=== PATIENT | male | born 1955 | race Caucasian/White ===

== ENCOUNTER 2017-10-12 10:45 | Outpatient (CLI) | payer MEDICARE, MEDICAID ==
[~2017-10-12 10:45] MED LIST: AC325T PO; ACYSUS PO; ALBU0.63 IH; ALBU2.5V4 IH; ALBU2.5V4 NEB; ALPR0.5T7 PO; ALPR1T PO; ALPR2TAB6 PO; AMOX-355 PO; AMOX500C2 PO; ARIP30TA PO; CPR500T PO; CYCL10TA9 PO; DCS100C PO; DIAZ-345 PO; DIAZ10TA3 PO; DOCU-143 PO; DOXY100C2 PO; DRON5CAP2 PO; DULO60CA58 PO; FENT1PAT11 TD; FENT1PAT60 TD; FENT1PAT9 TD; FLC100T1 PO; FLUO20CA25 PO; FLUT1DIS26 IH; HYDR-2890 PO; HYDR-3720 PO; HYDR-3730 PO; HYDR-3820 PO; HYDR-623 PO; HYDR1TAB PO; HYDR1TAB86 PO; HYDROCODONE; LEVE500T6 PO; LEVO250T7 PO; LEVO500T69 PO; LEVO750T24 PO; MAGIC MOUTH WASH; MAGIC MOUTHWASH PO; MAGN400C PO; MECL-106 PO; MECL25TA56 PO; METR500T PO; MORP100C16 PO; MORP15TA8 PO; MORP30TA16 PO; MORP30TA5 PO; MORPHINE; MSIR PO; MUPI1OIN5 NS; NEBU1EAC10 MC; NEBU1EAC2 MC; NUTR237L33 PO; OMEP20CA12 PO; ONDA-42 SL; ONDA8TAB6 PO; OXYC-12 PO; OXYC-202 PO; OXYC-465 PO; PANT40TA2 PO; PNT40TEC PO; PRCD5U PO; PRD20T PO; PRED20TA PO; PROC10TA PO; PROC5TAB PO; QTP100T PO; QUET100T32 PO; SCR1T1 PO; SENN8.6T81 PO; SNN187T PO; SUCR1TAB PO; TRAZADONE; TRZ50T; ZOLP12.5 PO; ZOLP12.546 PO; [UNRECOGNIZED DRUG - CODE] PO; hydrocodone 10/325 PO
== END 2017-10-12 11:20 | disposition home or self-care (01) ==
LOC: SLEEP 10:45
PROVIDERS: ATTEND Family Medicine
DX: G47.30 Sleep apnea, unspecified (principal); R06.83 Snoring; G47.00 Insomnia, unspecified; G47.10 Hypersomnia, unspecified; I49.9 Cardiac arrhythmia, unspecified

== ENCOUNTER 2017-11-18 16:21 | Inpatient (IN) | payer MEDICARE, MEDICAID ==
[~2017-11-18] VITALS: Ht 172.7 cm; Wt 57.2 kg
--- NOTE | 2017-11-18 16:27 | ED Cough/URI ---
General Stated Complaint: COUGH Source: patient, EMS Exam Limitations: no limitations History of Present Illness Time seen by provider: 16:26 Initial Comments To ER per EMS from home with reports of a cough that has been productive for 7 days. Today he coughed up a bit of blood-tinged sputum. Has a history of throat cancer which has been surgically resected and is most of his feedings through a PEG tube. He also states that he is out of his pain medication and he ran out yesterday. He takes this for chronic neck and back pain. He is noted to be febrile at 101.8 upon arrival. Received 1L normal saline en route to hospital. Timing/Duration: constant, week Severity/Quality: productive cough Associated Symptoms: cough, fever/chills, shortness of breath Allergies and Home Medications Allergies Coded Allergies: propoxyphene (Verified Allergy, Unknown, 02/10/07) Home Medications Albuterol Sulfate 2.5 Mg/3 Ml Vial.neb, 2.5 MG NEB Q4H PRN for SHORTNESS OF BREATH, (Reported) Diazepam 10 Mg Tablet, 10 MG PO QID PRN for ANXIETY, (Reported) Docusate Sodium 100 Mg Capsule, 100 MG PO DAILY PRN for CONSTIPATION-1ST LINE, ( Reported) Duloxetine HCl 60 Mg Capsule.dr, 60 MG PO DAILY, (Reported) Fentanyl 1 Each Patch.td72, 100 MCG TD Q72H, (Reported) USES ALONG WITH 37.5 MCG PATCH Fentanyl 1 Each Patch.td72, 37.5 MCG TD Q72H, (Reported) USES ALONG 100MCG PATCH Nutritional Supplement 237 Ml Liquid, 120 ML PO QID, (Reported) Zolpidem Tartrate 12.5 Mg Tab.mphase, 12.5 MG PO HS PRN for SLEEP, (Reported) Constitutional: see HPI, other (cachectic and pale) EENTM: see HPI Respiratory: see HPI, cough Cardiovascular: no symptoms reported Genitourinary: no symptoms reported Musculoskeletal: no symptoms reported Skin: no symptoms reported Psychiatric/Neurological: No Symptoms Reported Hematologic/Lymphatic: No Symptoms Reported Past Erbvzzd-Gjfwzp-Tmrbdv Hx Patient Social History Type Used: Cigarettes 2nd Hand Smoke Exposure: Yes Recent Hopitalizations: No Immunizations Up To Date Tetanus Booster (TDap): Less than 5yrs PED Vaccines UTD: Yes Date of Pneumonia Vaccine: Nov 23, 2015 Date of Influenza Vaccine: Aug 06, 2017 Seasonal Allergies Seasonal Allergies: No Surgeries History of Surgeries: Yes Surgeries: Abdominal, Gallbladder, Orthopedic, Tonsillectomy Respiratory History of Respiratory Disorde: Yes (ASPIRATION PNEUMONIA) Respiratory Disorders: Pneumonia, Chronic Bronchitis, COPD Currently Using CPAP: No Currently Using BIPAP: No Cardiovascular History of Cardiac Disorders: Yes (PT REPORTS HE NEEDS PACEMAKER.) Neurological History of Neurological Disord: Yes Neurological Disorders: Neuropathy, Seizure Disorder Reproductive System Hx Reproductive Disorders: No Sexually Transmitted Disease: No HIV/AIDS: No Genitourinary History of Genitourinary Disor: No Gastrointestinal History of Gastrointestinal Di: Yes (HEPATITIS C --NO TREATMENT; S/P CHOLECYSTECTOMY) Gastrointestinal Disorders: Hepatitis, Gall Bladder Disease Musculoskeletal History of Musculoskeletal Dis: Yes Musculoskeletal Disorders: Arthritis, Back Injury, Chronic Back Pain Endocrine History of Endocrine Disorders: Yes (DIET CONTROLLED) Endocrine Disorders: Diabetes, Non-Insulin dep HEENT History of HEENT Disorders: Yes (TONSILLAR CANCER) HEENT Disorders: Dysphagia 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 Did You Recieve Any Treatments: Yes Type of Tx Receive: Chemotherapy, Radiation, Surgical Intervention Psychosocial History of Psychiatric Problem: Yes Behavioral Health Disorders: Anxiety, Bipolar, Depression Integumentary History of Skin or Integumenta: No Blood Transfusions History of Blood Disorders: Yes (HEP C) Adverse Reaction to a Blood Tr: No Family Medical History Family Medial History: Cardiovascular disease 19 FATHER 19 MOTHER G8 BROTHER Diabetes mellitus 19 FATHER 19 MOTHER FH: cancer 19 FATHER 19 MOTHER Hypertension 19 FATHER 19 MOTHER Myocardial infarction 19 FATHER (patient stated dad has had 2 heart attacks) G8 BROTHER Respiratory disorder G8 SISTER (COPD) Physical Exam Vital Signs Vital Sign - Last 12Hours 11/18/17 16:21 Temp 101.0 Pulse 86 Resp 18 B/P (MAP) 106/66 (79) Pulse Ox 91 O2 Delivery Nasal Cannula O2 Flow Rate 2.00 Capillary Refill : General Appearance: WD/WN, no apparent distress Eyes: Bilateral Eye Normal Inspection, Bilateral Eye PERRL, Bilateral Eye EOMI HEENT: PERRL/EOMI, normal ENT inspection, TMs normal Neck: non-tender, full range of motion Respiratory: no respiratory distress, no accessory muscle use, decreased breath sounds, rales, rhonchi Cardiovascular: regular rate, rhythm, no murmur Gastrointestinal: normal bowel sounds, non tender, soft Neurologic/Psychiatric: normal mood/affect, oriented x 3, other (lethargic) Skin: normal color, warm/dry Focused Exam Evaluation Lactate Level Laboratory Tests 11/18/17 16:24: Lactic Acid Level 1.37 Lactic Acid Level Laboratory Tests Test 11/18/17 16:24 Lactic Acid Level 1.37 MMOL/L (0.50-2.00) Progress/Results/Core Measures Suspected Sepsis SIRS Temperature: Pulse: Respiratory Rate: Laboratory Tests 11/18/17 16:24: White Blood Count 15.2H Blood Pressure / Mean: Laboratory Tests 11/18/17 16:24: Lactic Acid Level 1.37 Laboratory Tests 11/18/17 16:24: Creatinine 0.67, Platelet Count 204, Total Bilirubin 0.8 Results/Orders Lab Results Laboratory Tests Test 11/18/17 16:24 11/18/17 16:43 11/18/17 17:30 Range/Units White Blood Count 15.2 H 4.3-11.0 10^3/uL Red Blood Count 3.50 L 4.35-5.85 10^6/uL Hemoglobin 11.2 L 13.3-17.7 G/DL Hematocrit 33 L 40-54 % Mean Corpuscular Volume 94 80-99 FL Mean Corpuscular Hemoglobin 32 25-34 PG Mean Corpuscular Hemoglobin Concent 34 32-36 G/DL Red Cell Distribution Width 12.5 10.0-14.5 % Platelet Count 204 130-400 10^3/uL Mean Platelet Volume 10.6 H 7.4-10.4 FL Neutrophils (%) (Auto) 90 H 42-75 % Lymphocytes (%) (Auto) 6 L 12-44 % Monocytes (%) (Auto) 5 0-12 % Eosinophils (%) (Auto) 0 0-10 % Basophils (%) (Auto) 0 0-10 % Neutrophils # (Auto) 13.6 H 1.8-7.8 X 10^3 Lymphocytes # (Auto) 0.8 L 1.0-4.0 X 10^3 Monocytes # (Auto) 0.7 0.0-1.0 X 10^3 Eosinophils # (Auto) 0.0 0.0-0.3 10^3/uL Basophils # (Auto) 0.0 0.0-0.1 10^3/uL Neutrophils % (Manual) 80 % Lymphocytes % (Manual) 4 % Monocytes % (Manual) 2 % Eosinophils % (Manual) 0 % Basophils % (Manual) 0 % Band Neutrophils 14 % Blood Morphology Comment NORMAL Sodium Level 142 135-145 MMOL/L Potassium Level 3.9 3.6-5.0 MMOL/L Chloride Level 110 H 98-107 MMOL/L Carbon Dioxide Level 23 21-32 MMOL/L Anion Gap 9 5-14 MMOL/L Blood Urea Nitrogen 22 H 7-18 MG/DL Creatinine 0.67 0.60-1.30 MG/DL Estimat Glomerular Filtration Rate > 60 BUN/Creatinine Ratio 33 Glucose Level 141 H 70-105 MG/DL Lactic Acid Level 1.37 0.50-2.00 MMOL/L Calcium Level 8.2 L 8.5-10.1 MG/DL Total Bilirubin 0.8 0.1-1.0 MG/DL Aspartate Amino Transf (AST/SGOT) 34 5-34 U/L Alanine Aminotransferase (ALT/SGPT) 30 0-55 U/L Alkaline Phosphatase 63 40-136 U/L Ammonia 19 11-32 UMOL/L Troponin I < 0.30 <0.30 NG/ML B-Type Natriuretic Peptide 39.0 <100.0 PG/ML Total Protein 5.9 L 6.4-8.2 GM/DL Albumin 2.7 L 3.2-4.5 GM/DL Blood Gas Puncture Site LT RAD L RAD Blood Gas Patient Temperature 101.1 97.6 Arterial Blood pH 7.41 7.45 H 7.37-7.43 Arterial Blood Partial Pressure CO2 38 32 L 35-45 MMHG Arterial Blood Partial Pressure O2 37 *L 61 L 79-93 MMHG Arterial Blood HCO3 23 22 L 23-27 MMOL/L Arterial Blood Total CO2 24.0 23.1 21.0-31.0 MMOL/L Arterial Blood Oxygen Saturation 59 L 93 L 94-100 % Arterial Blood Base Excess -0.9 -1.4 -2.5-2.5 MMOL/L Nando Test YES-POS YES-POS Blood Gas Ventilator Setting NO NO Blood Gas Inspired Oxygen 2L 4 L Micro Results Microbiology 11/18/17 Influenza Types A,B Antigen (MAKAYLA) - Final, Complete My Orders Orders - MAXIMILIANO ALBRECHT GENERAL MAGISTRATE Cbc With Automated Diff (11/18/17 16:24) Comprehensive Metabolic Panel (11/18/17 16:24) Blood Culture (11/18/17 16:24) BNP (11/18/17 16:24) Troponin I (11/18/17 16:24) Saline Lock/Iv-Start (11/18/17 16:24) Ekg Tracing (11/18/17 16:24) Chest 1 View, Ap/Pa Only (11/18/17 16:24) Lactic Acid Analyzer (11/18/17 16:24) Acetaminophen Tablet (Tylenol Tablet) (11/18/17 16:30) Influenza A And B Antigens (11/18/17 16:28) Sputum Culture (11/18/17 16:29) Ammonia (11/18/17 16:31) Ua Culture If Indicated (11/18/17 16:31) Drug Screen Stat (Urine) (11/18/17 16:31) Manual Differential (11/18/17 16:24) Arterial Blood Gas (11/18/17 16:42) Acetaminophen Oral Solution (Tylenol Ora (11/18/17 17:00) Arterial Blood Gas (11/18/17 17:33) Piperacillin Sodium/Tazobactam (Zosyn Vi (11/18/17 18:00) Ns Iv 1000 Ml (Sodium Chloride 0.9%) (11/18/17 18:00) Ns Iv 1000 Ml (Sodium Chloride 0.9%) (11/18/17 18:01) Medications Given in ED Vital Signs/I&O Vital Sign - Last 12Hours 11/18/17 11/18/17 16:21 18:21 Temp 101.0 101.0 Pulse 86 84 Resp 18 18 B/P (MAP) 106/66 (79) Pulse Ox 91 93 O2 Delivery Nasal Cannula Nasal Cannula O2 Flow Rate 2.00 4.00 Capillary Refill : Diagnostic Imaging Diagonstic Imaging: Xray Plain Films/CT/US/NM/MRI: chest Comments NAME: MERVIN TAVARES Epifanio MED REC#: [id number] PT STATUS: REG ER : 1955 PHYSICIAN: MAXIMILIANO ALBRECHT APRN ADMIT DATE: 11/18/17/ER Draft Date of Exam:11/18/17 CHEST 1 VIEW, AP/PA ONLY INDICATION: Cough, fever and dyspnea. Portable AP upright view of the chest is obtained with comparison made to study of 09/16/2017. FINDINGS: There has been development of extensive airspace disease in the lower lobe of the right lung with lesser involvement of the left lung base. No pneumothorax is identified. There is no other evidence of significant change. IMPRESSION: 1. Findings are compatible with right lower lobe pneumonia with patchy pneumonitis or early pneumonia in the left lung base. Clinical correlation is recommended. Radiographic followup would be of use to document resolution. Dictated on workstation # [id number] Dict: 11/18/17 170 Trans: 11/18/[id number] FELICITA [id number] Interpreted by: LORI MCBRIDE MD Electronically signed by: Departure Communication (Admissions) Time/Spoke to Admitting Phy: 17:59 Communication Discussed the case with Dr. Danika Morgan. We will admit. Communication/Consulting I did remove the 100 g fentanyl patch and the patient's right thigh and the 50 g fentanyl patch on the patient's left thigh. He states they've been in place for 72 hours and need to be changed. We will substitute 100 g patch here and an additional 37.5 g patch to total 137.5 g instead of his 150 g in an attempt to taper him off. The old patches were disposed of in the sharps container in the room witnessed by RN. Progress Notes I did discuss code/intubation status with the patient. He states that he would allow CPR but he does not want to be intubated and kept alive on a ventilator. I then asked if he would like a ventilator even if he did not need CPR to which she replies "no". So he will be a DO NOT INTUBATE status. Impression Impression: Primary Impression: Pneumonia Disposition: ADMITTED INPATIENT Condition: Critical Admissions Decision to Admit Reason: Admit from ER (General) Decision to Admit/Date: Nov 18, 2017 Time/Decision to Admit Time: 18:30 Departure-Patient Inst. Decision time for Depature: 16:55 Referrals: [facility] (PCP) Primary Care Physician JON PHILIP DO (Family) Primary Care Physician MAXIMILIANO ALBRECHT APRN Nov 18, 2017 16:27
--- OUTSIDE RECORDS SUMMARY | 2017-11-18 16:29 | XMS REPORT | Continuity of Care Document ---
Author Author [facility] Organization [facility] Address Unknown Phone Unavailable Allergies Active Description Code Type Severity Reaction Onset Reported/Identified Relationship to Patient Clinical Status Yes propoxyphene [id number] Drug Allergy Unknown N/A 02/10/2007 Medications There is no data. Problems Date Dx Coded Attending Type Code Diagnosis Diagnosed By MARKELL PONCE, SOREN Mcgowan Ot M54.2 CERVICALGIA 08/03/2009 Ot 070.70 08/03/2009 Ot 250.00 08/03/2009 Ot 305.1 08/03/2009 Ot 311 08/03/2009 Ot 401.9 08/03/2009 Ot 530.81 08/03/2009 Ot V43.65 08/03/2009 Ot V54.81 08/03/2009 Ot V57.1 10/01/2009 Ot V43.65 10/01/2009 Ot V54.81 10/01/2009 Ot V57.1 10/01/2009 Ot 070.70 10/01/2009 Ot 250.00 10/01/2009 Ot 305.1 10/01/2009 Ot 311 10/01/2009 Ot 401.9 10/01/2009 Ot 715.90 10/01/2009 Ot 722.52 10/01/2009 Ot V43.65 10/01/2009 Ot V45.4 10/01/2009 Ot V57.1 09/05/2012 Ot 300.00 ANXIETY STATE NOS 10/15/2012 Ot 146.0 MALIGNANT NEOPL TONSIL 10/15/2012 Ot 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 11/05/2012 Ot 146.0 MALIGNANT NEOPL TONSIL 11/26/2012 Ot 146.0 MALIGNANT NEOPL TONSIL 11/26/2012 Ot 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 11/26/2012 Ot V58.0 ENCOUNTER FOR RADIOTHERAPY 12/21/2012 Ot 041.09 BACTERIAL INFECTION DUE TO OTHER STREPTO 12/21/2012 Ot 041.11 METHICILLIN SUSCEPTIBLE STAPHYLOCOCCUS A 12/21/2012 Ot 070.54 CHRONIC HEPATITIS C W/O HEPATIC COMA 12/21/2012 Ot 146.9 MALIG BARBARA OROPHARYNX NOS 12/21/2012 Ot 276.51 DEHYDRATION 12/21/2012 Ot 300.00 ANXIETY STATE NOS 12/21/2012 Ot 305.1 TOBACCO USE DISORDER 12/21/2012 Ot 338.3 NEOPLASM RELATED PAIN (ACUTE)(CHRONIC) 12/21/2012 Ot 528.00 STOMATITIS AND MUCOSITIS, UNSPECIFIED 12/25/2012 Ot 070.54 CHRONIC HEPATITIS C W/O HEPATIC COMA 12/25/2012 Ot 146.9 MALIG BARBARA OROPHARYNX NOS 12/25/2012 Ot 300.00 ANXIETY STATE NOS 12/25/2012 Ot 305.1 TOBACCO USE DISORDER 12/25/2012 Ot 338.3 NEOPLASM RELATED PAIN (ACUTE)(CHRONIC) 12/25/2012 Ot 507.0 FOOD/VOMIT PNEUMONITIS 12/25/2012 Ot 564.00 UNSPEC CONSTIPATION 01/16/2013 Ot 070.54 CHRONIC HEPATITIS C W/O HEPATIC COMA 01/16/2013 Ot 146.0 MALIGNANT NEOPL TONSIL 01/16/2013 Ot 276.51 DEHYDRATION 01/16/2013 Ot 287.5 THROMBOCYTOPENIA NOS 01/16/2013 Ot 305.1 TOBACCO USE DISORDER 01/16/2013 Ot 338.3 NEOPLASM RELATED PAIN (ACUTE)(CHRONIC) 01/16/2013 Ot 528.01 MUCOSITIS ( ULCERATIVE) DUE TO ANTINEOPLA 01/16/2013 Ot 716.90 ARTHROPATHY NOS-UNSPEC 01/16/2013 Ot E933.1 ADV EFF ANTINEOPLASTIC 02/16/2013 Ot 070.54 CHRONIC HEPATITIS C W/O HEPATIC COMA 02/16/2013 Ot 112.0 THRUSH 02/16/2013 Ot 146.0 MALIGNANT NEOPL TONSIL 02/16/2013 Ot 275.2 DIS MAGNESIUM METABOLISM 02/16/2013 Ot 276.51 DEHYDRATION 02/16/2013 Ot 300.00 ANXIETY STATE NOS 02/16/2013 Ot 305.1 TOBACCO USE DISORDER 02/16/2013 Ot 338.29 OTHER CHRONIC PAIN 02/16/2013 Ot 528.01 MUCOSITIS ( ULCERATIVE) DUE TO ANTINEOPLA 02/16/2013 Ot 787.01 NAUSEA WITH VOMITING 02/16/2013 Ot E933.1 ADV EFF ANTINEOPLASTIC 02/27/2013 Ot 146.0 MALIGNANT NEOPL TONSIL 02/27/2013 Ot 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 02/27/2013 Ot V58.0 ENCOUNTER FOR RADIOTHERAPY 02/27/2013 Ot V58.11 ENCOUNTER FOR ANTINEOPLASTIC CHEMOTHERAP 04/04/2013 MERVIN BUCIO MD Ot 462 ACUTE PHARYNGITIS 04/04/2013 MERVIN BUCIO MD Ot 787.03 VOMITING ALONE 04/08/2013 EMMANUEL HONEYCUTT MD P Ot 146.0 MALIGNANT NEOPL TONSIL 04/08/2013 EMMANUEL HONEYCUTT MD P Ot 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 04/08/2013 EMMANUEL HONEYCUTT MD P Ot 276.51 DEHYDRATION 04/08/2013 EMMANUEL HONEYCUTT MD P Ot 276.8 HYPOPOTASSEMIA 04/08/2013 EMAMNUEL HONEYCUTT MD Ot 305.1 TOBACCO USE DISORDER 04/08/2013 EMMANUEL HONEYCUTT MD Ot 462 ACUTE PHARYNGITIS 04/08/2013 EMMANUEL HONEYCUTT MD P Ot 530.81 ESOPHAGEAL REFLUX 04/08/2013 EMMANUEL HONEYCUTT MD P Ot 533.90 PEPTIC ULCER NOS 04/08/2013 EMMANUEL HONEYCUTT MD Ot V44.1 GASTROSTOMY STATUS 04/12/2013 LENA HORNER MD Ot 146.0 MALIGNANT NEOPL TONSIL 04/12/2013 LENA HORNER MD Ot V55.1 ATTEN TO GASTROSTOMY 04/12/2013 LENA HORNER MD Ot V58.81 FIT/ADJ VASCULAR CATHETER 05/26/2013 ZACH LOPEZ MD Ot 146.0 MALIGNANT NEOPL TONSIL 05/26/2013 ZACH LOPEZ MD Ot 462 ACUTE PHARYNGITIS 05/26/2013 ZACH LOPEZ MD Ot 784.2 SWELLING IN HEAD NECK 05/26/2013 ZACH LOPEZ MD Ot V15.3 HX OF IRRADIATION 05/26/2013 ZACH LOPEZ MD Ot V87.41 PERSONAL HISTORY OF ANTINEOPLASTIC CHEMO 06/19/2013 JABARI ADAMES MD Ot 146.0 MALIGNANT NEOPL TONSIL 06/19/2013 JABARI ADAMES MD Ot 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 09/20/2013 JABARI ADAMES MD Ot 146.0 MALIGNANT NEOPL TONSIL 09/20/2013 JABARI ADAMES MD Ot 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 12/27/2013 JABARI ADAMES MD Ot 146.0 MALIGNANT NEOPL TONSIL 12/27/2013 JABARI ADAMES MD Ot 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 04/16/2014 JABARI ADAMES MD Ot 146.0 MALIGNANT NEOPL TONSIL 04/16/2014 JABARI ADAMES MD Ot 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 04/16/2014 JABARI ADAMES MD Ot V58.69 OTH MED,LT,CURRENT USE 05/11/2014 ASHU SNEED Ot 250.00 DIAB AVERY WO COMPL, TYPE II OR UNSPEC TY 05/11/2014 ASHU SNEED Ot 296.80 BIPOLAR DISORDER, UNSPECIFIED 05/11/2014 ASHU SNEED Ot 300.00 ANXIETY STATE NOS 05/11/2014 ASHU SNEED Ot 305.1 TOBACCO USE DISORDER 05/11/2014 ASHU SNEED Ot 573.3 HEPATITIS NOS 05/11/2014 ASHU SNEED Ot 716.90 ARTHROPATHY NOS-UNSPEC 05/11/2014 ASHU SNEED Ot 850.0 CONCUSSION W/O COMA 05/11/2014 ASHU SNEED Ot 891.0 OPEN WND KNEE/LEG/ANKLE 05/11/2014 ASHU SNEED Ot 919.0 ABRASION NEC 05/11/2014 ASHU SNEED Ot E881.0 FALL FROM LADDER 05/11/2014 ASHU SNEED Ot V06.1 [id number], COMBINED [ 07/03/2014 JUSTYN CASAS DO Ot 250.00 DIAB AVERY WO COMPL, TYPE II OR UNSPEC TY 07/03/2014 JUSTYN CASAS DO Ot 305.1 TOBACCO USE DISORDER 07/03/2014 JUSTYN CASAS DO Ot 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 07/03/2014 JUSTYN CASAS DO Ot 723.1 CERVICALGIA 07/03/2014 JUSTYN CASAS DO Ot V58.67 LONG-TERM (CURRENT) USE OF INSULIN 07/24/2014 JABARI ADAMES MD Ot 070.54 CHRONIC HEPATITIS C W/O HEPATIC COMA 07/24/2014 JABARI ADAMES MD Ot 146.0 MALIGNANT NEOPL TONSIL 07/24/2014 JABARI ADAMES MD Ot 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 07/24/2014 JABARI ADAMES MD Ot 250.00 DIAB AVERY WO COMPL, TYPE II OR UNSPEC TY 07/24/2014 JABARI ADAMES MD Ot 305.1 TOBACCO USE DISORDER 07/24/2014 JABARI ADAMES MD Ot 722.90 DISC DIS NEC/NOS-UNSPEC 07/24/2014 JABARI ADAMES MD Ot V15.3 HX OF IRRADIATION 07/24/2014 JABARI ADAMES MD Ot V58.69 OTH MED,LT,CURRENT USE 07/24/2014 JABARI ADAMES MD Ot V87.41 PERSONAL HISTORY OF ANTINEOPLASTIC CHEMO 09/01/2014 EM MORRIS MD Ot 070.54 CHRONIC HEPATITIS C W/O HEPATIC COMA 09/01/2014 EM MORRIS MD Ot 345.90 EPILEPSY UNSPEC W/O MENTION INTRACTABLE 09/01/2014 EM MORRIS MD Ot 780.97 ALTERED MENTAL STATUS 09/01/2014 EM MORRIS MD Ot V04.81 ND FOR PROPHYLACTIC VACCIN AND INOCULATI 09/01/2014 EM MORRIS MD Ot V10.02 HX-ORAL/PHARYNX MALG NEC 10/11/2014 KATTY PONCE, CEASAR Guallpa Ot 786.50 CHEST PAIN NOS 10/11/2014 CEASAR ALANIZ MD Ot 786.52 PAINFUL RESPIRATION 10/11/2014 CEASAR ALANIZ MD Ot 787.01 NAUSEA WITH VOMITING 10/18/2014 JABARI ADAMES MD Ot 070.54 10/18/2014 JABARI ADAMES MD Ot 146.0 10/18/2014 JABARI ADAMES MD Ot 198.89 10/18/2014 JABARI ADAMES MD Ot 250.00 10/18/2014 JABARI ADAMES MD Ot 305.1 10/18/2014 JABARI ADAMES MD Ot 722.90 10/18/2014 JABARI ADAMES MD Ot V15.3 10/18/2014 JABARI ADAMES MD Ot V58.69 10/18/2014 JABARI ADAMES MD Ot V87.41 10/31/2014 JABARI ADAMES MD Ot 070.54 CHRONIC HEPATITIS C W/O HEPATIC COMA 10/31/2014 JABARI ADAMES MD Ot 146.0 MALIGNANT NEOPL TONSIL 10/31/2014 JABARI ADAMES MD Ot 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 10/31/2014 ROSANGELA PONCE, JABARI Garcia Ot 250.00 DIAB AVERY WO COMPL, TYPE II OR UNSPEC TY 10/31/2014 ROSANGELA PONCE, JABARI Garcia Ot 305.1 TOBACCO USE DISORDER 10/31/2014 ROSANGELA PONCE, JABARI Garcia Ot 722.90 DISC DIS NEC/NOS-UNSPEC 10/31/2014 ROSANGELA PONCE, JABARI Zelaya Ot V15.3 HX OF IRRADIATION 10/31/2014 ROSANGELA PONCE, JABARI Garcia Ot V58.69 OTH MED,LT,CURRENT USE 10/31/2014 ROSANGELA POCNE, JABARI Garcia Ot V87.41 PERSONAL HISTORY OF ANTINEOPLASTIC CHEMO 11/18/2014 Ot 173.42 11/18/2014 Ot 784.2 11/18/2014 Ot 173.42 11/18/2014 Ot 784.2 11/18/2014 Ot V72.84 11/18/2014 Ot V74.8 11/18/2014 Ot 784.2 11/18/2014 EVENS PONCE, LENA Sherman Ot 146.0 11/18/2014 EVENS PONCE, LENA Sherman Ot V72.84 11/18/2014 ROSANGELA PONCE, JABARI Garcia Ot 593.2 11/18/2014 ROSANGELA PONCE, JABARI Garcia Ot 789.1 11/18/2014 ROSANGELA PONCE, JABARI Garcia Ot 146.0 11/18/2014 ROSANGELA PONCE, JABARI Garcia Ot 780.39 11/18/2014 SANDRA MITCHELL MD Ot 433.30 11/18/2014 ROSANGELA PONCE, JABARI Garcia Ot 070.54 11/18/2014 ROSANGELA PONCE, JABARI Garcia Ot 146.0 11/18/2014 ROSANGELA PONCE, JABARI Garcia Ot 198.89 11/18/2014 ROSANGELA PONCE, JABARI Garcia Ot 250.00 11/18/2014 ROSANGELA PONCE, JABARI Garcia Ot 305.1 11/18/2014 ROSANGELA PONCE JABARI Garcia Ot 722.90 11/18/2014 ROSANGELA PONCE JABARI Garcia Ot V15.3 11/18/2014 ROSANGELA PONCE JABARI Garcia Ot V58.69 11/18/2014 ROSANGELA PONCE JABARI Garcia Ot V87.41 11/20/2014 CHARLEEN PONCE, EZEKIEL Ot 250.00 11/20/2014 CHARLEEN PONCE, EZEKIEL Ot 300.00 11/20/2014 EZEKIEL VILLASEÑOR MD Ot 305.1 11/20/2014 EZEKIEL VILLASEÑOR MD Ot 311 11/20/2014 CHARLEEN PONCE, TAKAAKI Ot 530.81 11/20/2014 CHARLEEN PONCE, TAKAAKI Ot 715.90 11/20/2014 CHARLEEN PONCE, TAKAAKI Ot 780.97 11/20/2014 CHARLEEN PONCE, TAKAAKI Ot 850.9 11/20/2014 CHARLEEN PONCE, TAKAAKI Ot 969.3 11/20/2014 CHARLEEN PONCE, TAKAAKI Ot 969.4 11/20/2014 CHARLEEN PONCE, TAKAAKI Ot E819.0 11/20/2014 CHARLEEN PONCE, TAKAAKI Ot E853.2 11/20/2014 CHARLEEN PONCE, TAKAAKI Ot E853.8 11/20/2014 CHARLEEN PONCE, TAKAAKI Ot V10.02 11/20/2014 CHARLEEN PONCE, TAKAAKI Ot V12.09 11/20/2014 CHARLEEN PONCE, YISSELAAKI Ot V45.4 11/20/2014 CHARLEEN PONCE, TAKAAKI Ot 250.00 11/20/2014 CHARLEEN PONCE, TAKAAKI Ot 300.00 11/20/2014 CHARLEEN PONCE, TAKAAKI Ot 305.1 11/20/2014 CHARLEEN PONCE, TAKAAKI Ot 311 11/20/2014 CHARLEEN PONCE, TAKAAKI Ot 530.81 11/20/2014 CHARLEEN PONCE, TAKAAKI Ot 715.90 11/20/2014 CHARLEEN PONCE, TAKAAKI Ot 780.97 11/20/2014 CHARLEEN PONCE, TAKAAKI Ot 850.9 11/20/2014 CHARLEEN PONCE, TAKAAKI Ot 969.3 11/20/2014 CHARLEEN PONCE, TAKAAKI Ot 969.4 11/20/2014 CHARLEEN PONCE, TAKAAKI Ot E819.0 11/20/2014 CHARLEEN PONCE, TAKAAKI Ot E853.2 11/20/2014 CHARLEEN PONCE, TAKAAKI Ot E853.8 11/20/2014 CHARLEEN PONCE, TAKAAKI Ot V10.02 11/20/2014 CHARLEEN PONCE, TAKAAKI Ot V12.09 11/20/2014 CHARLEEN PONCE, YISSELAAKI Ot V45.4 11/20/2014 CHARLEEN PONCE, TAKAAKI Ot 250.00 11/20/2014 CHARLEEN PONCE, TAKAAKI Ot 300.00 11/20/2014 CHARLEEN PONCE, TAKAAKI Ot 305.1 11/20/2014 CHARLEEN PONCE, TAKAAKI Ot 311 11/20/2014 CHARLEEN PONCE, TAKAAKI Ot 530.81 11/20/2014 CHARLEEN PONCE, TAKAAKI Ot 715.90 11/20/2014 CHARLEEN PONCE, TAKAAKI Ot 780.97 11/20/2014 CHARLEEN PONCE, TAKAAKI Ot 850.9 11/20/2014 CHARLEEN PONCE, TAKAAKI Ot 969.3 11/20/2014 CHARLEEN PONCE, TAKAAKI Ot 969.4 11/20/2014 CHARLEEN PONCE, TAKAAKI Ot E819.0 11/20/2014 CHARLEEN PONCE, TAKAAKI Ot E853.2 11/20/2014 CHARLEEN PONCE, TAKAAKI Ot E853.8 11/20/2014 CHARLEEN PONCE, TAKAAKI Ot V10.02 11/20/2014 CHARLEEN PONCE, YISSELAAKI Ot V12.09 11/20/2014 CHARLEEN PONCE, YISSELAAKI Ot V45.4 11/20/2014 CHARLEEN PONCE, TAKAAKI Ot 250.00 11/20/2014 CHARLEEN PONCE, TAKAAKI Ot 300.00 11/20/2014 CHARLEEN PONCE, TAKAAKI Ot 305.1 11/20/2014 CHARLEEN PONCE, TAKAAKI Ot 311 11/20/2014 CHARLEEN PONCE, TAKAAKI Ot 530.81 11/20/2014 CHARLEEN PONCE, TAKAAKI Ot 715.90 11/20/2014 CHARLEEN PONCE, TAKAAKI Ot 780.97 11/20/2014 CHARLEEN PONCE, TAKAAKI Ot 850.9 11/20/2014 CHARLEEN PONCE, TAKAAKI Ot 969.3 11/20/2014 CHARLEEN PONCE, TAKAAKI Ot 969.4 11/20/2014 CHARLEEN PONCE, TAKAAKI Ot E819.0 11/20/2014 CHARLEEN PONCE, TAKAAKI Ot E853.2 11/20/2014 CHARLEEN PONCE, TAKAAKI Ot E853.8 11/20/2014 CHARLEEN PONCE, TAKAAKI Ot V10.02 11/20/2014 CHARLEEN PONCE, TAKAAKI Ot V12.09 11/20/2014 CHARLEEN PONCE, TAKAAKI Ot V45.4 11/20/2014 CHARLEEN PONCE, TAKAAKI Ot 250.00 11/20/2014 CHARLEEN PONCE, TAKAAKI Ot 300.00 11/20/2014 CHARLEEN PONCE, TAKAAKI Ot 305.1 11/20/2014 CHARLEEN PONCE, TAKAAKI Ot 311 11/20/2014 CHARLEEN PONCE, TAKAAKI Ot 530.81 11/20/2014 CHARLEEN PONCE, TAKAAKI Ot 715.90 11/20/2014 CHARLEEN PONCE, TAKAAKI Ot 780.97 11/20/2014 CHARLEEN PONCE, TAKAAKI Ot 850.9 11/20/2014 CHARLEEN PONCE, TAKAAKI Ot 969.3 11/20/2014 CHARLEEN PONCE, TAKAAKI Ot 969.4 11/20/2014 CHARLEEN PONCE, TAKAAKI Ot E819.0 11/20/2014 CHARLEEN PONCE, TAKAAKI Ot E853.2 11/20/2014 CHARLEEN PONCE, TAKAAKI Ot E853.8 11/20/2014 CHARLEEN PONCE, TAKAAKI Ot V10.02 11/20/2014 CHARLEEN PONCE, TAKAAKI Ot V12.09 11/20/2014 CHARLEEN PONCE, TAKAAKI Ot V45.4 11/20/2014 CHARLEEN PONCE, TAKAAKI Ot 250.00 11/20/2014 CHARLEEN PONCE, TAKAAKI Ot 300.00 11/20/2014 CHARLEEN PONCE, TAKAAKI Ot 305.1 11/20/2014 CHARLEEN PONCE, TAKAAKI Ot 311 11/20/2014 CHARLEEN PONCE, TAKAAKI Ot 530.81 11/20/2014 CHARLEEN PONCE, TAKAAKI Ot 715.90 11/20/2014 CHARLEEN PONCE, TAKAAKI Ot 780.97 11/20/2014 CHARLEEN PONCE, TAKAAKI Ot 850.9 11/20/2014 CHARLEEN PONCE, TAKAAKI Ot 969.3 11/20/2014 CHARLEEN PONCE, TAKAAKI Ot 969.4 11/20/2014 CHARLEEN PONCE, TAKAAKI Ot E819.0 11/20/2014 CHARLEEN PONCE, TAKAAKI Ot E853.2 11/20/2014 CHARLEEN PONCE, TAKAAKI Ot E853.8 11/20/2014 CHARLEEN PONCE, TAKAAKI Ot V10.02 11/20/2014 CHARLEEN PONCE, TAKAAKI Ot V12.09 11/20/2014 EZEKIEL VILLASEÑOR MD Ot V45.4 11/21/2014 CHARLEEN PONCE, EZEKIEL Ot 250.00 11/21/2014 CHARLEEN PONCE, EZEKIEL Ot 300.00 11/21/2014 EZEKIEL VILLASEÑOR MD Ot 305.1 11/21/2014 EZEKIEL VILLASEÑOR MD Ot 311 11/21/2014 CHARLEEN PONCE, EZEKIEL Ot 530.81 11/21/2014 EZEKIEL VILLASEÑOR MD Ot 715.90 11/21/2014 EZEKIEL VILLASEÑOR MD Ot 780.97 11/21/2014 EZEKIEL VILLASEÑOR MD Ot 850.9 11/21/2014 EZEKIEL VILLASEÑOR MD Ot 969.3 11/21/2014 EZEKIEL VILLASEÑOR MD Ot 969.4 11/21/2014 EZEKIEL VILLASEÑOR MD Ot E819.0 11/21/2014 EZEKIEL VILLASEÑOR MD Ot E853.2 11/21/2014 EZEKIEL VILLASEÑOR MD Ot E853.8 11/21/2014 EZEKIEL VILLASEÑOR MD Ot V10.02 11/21/2014 EZEKIEL VILLASEÑOR MD Ot V12.09 11/21/2014 EZEKIEL VILLASEÑOR MD Ot V45.4 11/21/2014 CHARLEEN PONCE, EZEKIEL Ot 250.00 DIAB AVERY WO COMPL, TYPE II OR UNSPEC TY 11/21/2014 EZEKIEL VILLASEÑOR MD Ot 300.00 ANXIETY STATE NOS 11/21/2014 EZEKIEL VILLASEÑOR MD Ot 305.1 TOBACCO USE DISORDER 11/21/2014 EZEKIEL VILLASEÑOR MD Ot 311 DEPRESSIVE DISORDER NEC 11/21/2014 EZEKIEL VILLASEÑOR MD Ot 530.81 ESOPHAGEAL REFLUX 11/21/2014 EZEKIEL VILLASEÑOR MD Ot 715.90 OSTEOARTHROS NOS-UNSPEC 11/21/2014 EZEKIEL VILLASEÑOR MD Ot 780.97 ALTERED MENTAL STATUS 11/21/2014 EZEKIEL VILLASEÑOR MD Ot 850.9 CONCUSSION NOS 11/21/2014 EZEKIEL VILLASEÑOR MD Ot 969.3 POISON-ANTIPSYCHOTIC NEC 11/21/2014 EZEKIEL VILLASEÑOR MD Ot 969.4 POIS-BENZODIAZEPINE GIPSON 11/21/2014 EZEKIEL VILLASEÑOR MD Ot E819.0 TRAFFIC ACC NOS-BOILER MAKER 11/21/2014 CHARLEEN PONCE, EZEKIEL Ot E853.2 ACC POISN-BENZDIAZ TRANQ 11/21/2014 CHARLEEN PONCE, EZEKIEL Ot E853.8 ACC POISN-TRANQUILZR NEC 11/21/2014 CHARLEEN PONCE, EZEKIEL Ot V10.02 HX-ORAL/PHARYNX MALG NEC 11/21/2014 CHARLEEN PONCE, EZEKIEL Ot V12.09 PERSONAL HISTORY OTH SPEC INFECT [place] 11/21/2014 CHARLEEN PONCE, EZEKIEL Ot V45.4 ARTHRODESIS STATUS 11/21/2014 CHARLEEN PONCE, EZEKIEL Ot 250.00 11/21/2014 CHARLEEN PONCE, EZEKIEL Ot 300.00 11/21/2014 CHARLEEN PONCE, EZEKIEL Ot 305.1 11/21/2014 CHARLEEN PONCE, EZEKIEL Ot 311 11/21/2014 CHARLEEN PONCE, EZEKIEL Ot 530.81 11/21/2014 CHARLEEN PONCE, EZEKIEL Ot 715.90 11/21/2014 CHARLEEN PONCE, EZEKIEL Ot 780.97 11/21/2014 CHARLEEN PONCE, EZEKIEL Ot 850.9 11/21/2014 CHARLEEN PONCE, EZEKIEL Ot 969.3 11/21/2014 CHARLEEN PONCE, EZEKIEL Ot 969.4 11/21/2014 CHARLEEN PONCE, EZEKIEL Ot E819.0 11/21/2014 CHARLEEN PONCE, EZEKIEL Ot E853.2 11/21/2014 CHARLEEN PONCE, EZEKIEL Ot E853.8 11/21/2014 CHARLEEN PONCE, EZEKIEL Ot V10.02 11/21/2014 CHARLEEN PONCE, EZEKIEL Ot V12.09 11/21/2014 CHARLEEN PONCE, EZEKIEL Ot V45.4 11/21/2014 CHARLEEN PONCE, BRANDONKI Ot 250.00 11/21/2014 CHARLEEN PONCE, YISSELAAKI Ot 300.00 11/21/2014 CHARLEEN PONCE, YISSELAAKI Ot 305.1 11/21/2014 CHARLEEN PONCE, YISSELAAKI Ot 311 11/21/2014 CHARLEEN PONCE, YISSELAAKI Ot 530.81 11/21/2014 CHARLEEN PONCE, YISSELAAKI Ot 715.90 11/21/2014 CHARLEEN PONCE, YISSELAAKI Ot 780.97 11/21/2014 CHARLEEN PONCE, TAKAAKI Ot 850.9 11/21/2014 CHARLEEN PONCE, TAKAAKI Ot 969.3 11/21/2014 CHARLEEN PONCE, TAKAAKI Ot 969.4 11/21/2014 CHARLEEN PONCE, TAKAAKI Ot E819.0 11/21/2014 CHARLEEN PONCE, TAKAAKI Ot E853.2 11/21/2014 CHARLEEN PONCE, TAKAAKI Ot E853.8 11/21/2014 CHARLEEN PONCE, TAKAAKI Ot V10.02 11/21/2014 CHARLEEN PONCE, TAKAAKI Ot V12.09 11/21/2014 CHARLEEN PONCE, TAKAAKI Ot V45.4 11/21/2014 CHARLEEN PONCE, TAKAAKI Ot 250.00 11/21/2014 CHARLEEN PONCE, TAKAAKI Ot 300.00 11/21/2014 CHARLEEN PONCE, TAKAAKI Ot 305.1 11/21/2014 CHARLEEN PONCE, TAKAAKI Ot 311 11/21/2014 CHARLEEN PONCE, TAKAAKI Ot 530.81 11/21/2014 CHARLEEN PONCE, TAKAAKI Ot 715.90 11/21/2014 CHARLEEN PONCE, TAKAAKI Ot 780.97 11/21/2014 CHARLEEN PONCE, TAKAAKI Ot 850.9 11/21/2014 CHARLEEN PONCE, TAKAAKI Ot 969.3 11/21/2014 CHARLEEN PONCE, TAKAAKI Ot 969.4 11/21/2014 CHARLEEN PONCE, TAKAAKI Ot E819.0 11/21/2014 CHARLEEN PONCE, TAKAAKI Ot E853.2 11/21/2014 CHARLEEN PONCE, TAKAAKI Ot E853.8 11/21/2014 CHARLEEN PONCE, TAKAAKI Ot V10.02 11/21/2014 CHARLEEN PONCE, TAKAAKI Ot V12.09 11/21/2014 CHARLEEN PONCE, YISSELAAKI Ot V45.4 11/28/2014 STEPHEN PONCE, SANDRA Zelaya Ot 433.30 12/04/2014 ROSANGELA PONCE, JABARI Zelaya Ot 070.54 12/04/2014 ROSANGELA PONCE, JABARI Zelaya Ot 146.0 12/04/2014 ROSANGELA PONCE, JABARI K Ot 198.89 12/04/2014 ROSANGELA PONCE, JABARI Garcia Ot 250.00 12/04/2014 ROSANGELA PONCE, JABARI Zelaya Ot 305.1 12/04/2014 ROSANGELA PONCE, JABARI Zelaya Ot 722.90 12/04/2014 ROSANGELA PONCE, JABARI Zelaya Ot V15.3 12/04/2014 ROSANGELA PONCE, JABARI Zelaya Ot V58.69 12/04/2014 ROSANGELA PONCE, JABARI Zelaya Ot V87.41 12/12/2014 ROSANGELA PONCE, JABARI Zelaya Ot 070.54 12/12/2014 ROSANGELA PONCE, JABARI Zelaya Ot 146.0 12/12/2014 ROSANGELA PONCE, JABARI Zelaya Ot 198.89 12/12/2014 ROSANGELA PONCE, JABARI Zelaya Ot 250.00 12/12/2014 ROSANGELA PONCE, JABARI Zelaya Ot 305.1 12/12/2014 ROSANGELA PONCE, JABARI Zelaya Ot 722.90 12/12/2014 ROSANGELA PONCE, JABARI Zelaya Ot V15.3 12/12/2014 ROSANGELA PONCE, JABARI Zelaya Ot V58.69 12/12/2014 ROSANGELA PONCE, JABARI Zelaya Ot V87.41 12/13/2014 ROSANGELA PONCE, JABARI Zelaya Ot 070.54 12/13/2014 ROSANGELA PONCE, JABARI Zelaya Ot 146.0 12/13/2014 ROSANGELA PONCE, JABARI Zelaya Ot 198.89 12/13/2014 ROSANGELA PONCE, JABARI Zelaya Ot 250.00 12/13/2014 ROSANGELA PONCE, JABARI Zelaya Ot 305.1 12/13/2014 ROSANGELA PONCE, JABARI Zelaya Ot 722.90 12/13/2014 ROSANGELA PONCE, JABARI Zelaya Ot V15.3 12/13/2014 ROSANGELA PONCE, JABARI Zelaya Ot V58.69 12/13/2014 ROSANGELA PONCE, JABARI Zelaya Ot V87.41 12/18/2014 SANDRA MITCHELL MD Ot 433.30 12/29/2014 SOREN GUILLAUME MD Ot 737.10 12/29/2014 SOREN GUILLAUME MD Ot V72.83 01/01/2015 SOREN GUILLAUME MD Ot 070.70 01/01/2015 SOREN GUILLAUME MD Ot 721.0 01/01/2015 SOREN GUILLAUME MD Ot 722.81 01/01/2015 SOREN GUILLAUME MD Ot 723.0 01/01/2015 SOREN GUILLAUME MD Ot 729.2 01/01/2015 SOREN GUILLAUME MD Ot 737.12 01/01/2015 SOREN GUILLAUME MD Ot V15.3 01/01/2015 SOREN GUILLAUME MD Ot 070.70 01/01/2015 SOREN GUILLAUME MD Ot 721.0 01/01/2015 SOREN GUILLAUME MD Ot 722.81 01/01/2015 SOREN GUILLAUME MD Ot 723.0 01/01/2015 SOREN GUILLAUME MD Ot 729.2 01/01/2015 SOREN GUILLAUME MD Ot 737.12 01/01/2015 SOREN GUILLAUME MD Ot V15.3 01/02/2015 SOREN GUILLAUME MD Ot 070.70 01/02/2015 SOREN GUILLAUME MD, Ot 721.0 01/02/2015 SOREN GUILLAUME MD Ot 722.81 01/02/2015 SOREN GUILLAUME MD Ot 723.0 01/02/2015 SOREN GUILLAUME MD Ot 729.2 01/02/2015 SOREN GUILLAUME MD Ot 737.12 01/02/2015 SOREN GUILLAUME MD Ot V15.3 01/03/2015 SOREN GUILLAUME MD Ot 737.10 01/03/2015 SOREN GUILLAUME MD Ot V72.83 01/04/2015 SOREN GUILLAUME MD Ot 070.70 01/04/2015 SOREN GUILLAUME MD Ot 721.0 01/04/2015 SOREN GUILLAUME MD Ot 722.81 01/04/2015 SOREN GUILLAUME MD Ot 723.0 01/04/2015 SOREN GUILLAUME MD Ot 729.2 01/04/2015 SOREN GUILLAUME MD Ot 737.12 01/04/2015 SOREN GUILLAUME MD Ot V15.3 01/05/2015 SOREN GUILLAUME MD Ot 070.54 CHRONIC HEPATITIS C W/O HEPATIC COMA 01/05/2015 SOREN GUILLAUME MD Ot 070.70 01/05/2015 SOREN GUILLAUME MD Ot 250.00 DIAB AVERY WO COMPL, TYPE II OR UNSPEC TY 01/05/2015 SOREN GUILLAUME MD Ot 276.8 HYPOPOTASSEMIA 01/05/2015 SOREN GUILLAUME MD Ot 285.9 ANEMIA NOS 01/05/2015 SOREN GUILLAUME MD Ot 300.00 ANXIETY STATE NOS 01/05/2015 SOREN GUILLAUME MD Ot 305.1 TOBACCO USE DISORDER 01/05/2015 SOREN GUILLAUME MD Ot 311 DEPRESSIVE DISORDER NEC 01/05/2015 SOREN GUILLAUME MD Ot 486 PNEUMONIA, ORGANISM NOS 01/05/2015 SOREN GUILLAUME MD Ot 491.21 OBSTR CHRONIC BRONCHITIS, W (ACUTE) EXAC 01/05/2015 SOREN GUILLAUME MD Ot 507.0 FOOD/VOMIT PNEUMONITIS 01/05/2015 SOREN GUILLAUME MD Ot 715.90 OSTEOARTHROS NOS-UNSPEC 01/05/2015 SOREN GUILLAUME MD Ot 721.0 CERVICAL SPONDYLOSIS 01/05/2015 SOREN GUILLAUME MD Ot 722.81 POSTLAMINECT SYND-CERV 01/05/2015 SOREN GUILLAUME MD Ot 723.0 CERVICAL SPINAL STENOSIS 01/05/2015 SOREN GUILLAUME MD Ot 729.2 NEURALGIA/NEURITIS NOS 01/05/2015 SOREN GUILLAUME MD Ot 737.12 POSTLAMINECTOMY KYPHOSIS 01/05/2015 SOREN GUILLAUME MD Ot 780.39 OTHER CONVULSIONS 01/05/2015 SOREN GUILLAUME MD Ot 787.20 DYSPHAGIA, UNSPECIFIED 01/05/2015 OSREN GUILLAUME MD Ot V10.02 HX-ORAL/PHARYNX MALG NEC 01/05/2015 SOREN GUILLAUME MD Ot V15.3 HX OF IRRADIATION 01/05/2015 SOREN GUILLAUME MD Ot V15.81 HX OF PAST NONCOMPLIANCE 01/05/2015 SOREN GUILLAUME MD Ot V43.65 KNEE JOINT REPLACEMENT STATUS 01/05/2015 SOREN GUILLAUME MD Ot V45.89 POSTSURGICAL STATES NEC 01/18/2015 JABARI ADAMES MD Ot 070.54 01/18/2015 JABARI ADAMES MD Ot 146.0 01/18/2015 JABARI ADAMES MD Ot 198.89 01/18/2015 JABARI ADAMES MD Ot 250.00 01/18/2015 JABARI ADAMES MD Ot 305.1 01/18/2015 JABARI ADAMES MD Ot 722.90 01/18/2015 JABARI ADAMES MD Ot V15.3 01/18/2015 JABARI ADAMES MD Ot V58.69 01/18/2015 JABARI ADAMES MD Ot V87.41 02/16/2015 MERVIN BUCIO MD Ot 723.1 CERVICALGIA 02/16/2015 MERIVN BUCIO MD Ot 781.0 ABN INVOLUN MOVEMENT NEC 02/16/2015 MERVIN BUCIO MD Ot V15.81 HX OF PAST NONCOMPLIANCE 02/16/2015 MERVIN BUCIO MD Ot V58.69 OTH MED,LT,CURRENT USE 03/12/2015 JABARI ADAMES MD Ot 070.54 CHRONIC HEPATITIS C W/O HEPATIC COMA 03/12/2015 JABARI ADAMES MD Ot 146.0 MALIGNANT NEOPL TONSIL 03/12/2015 JABARI ADAMES MD Ot 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 03/12/2015 JABARI ADAMES MD Ot 250.00 DIAB AVERY WO COMPL, TYPE II OR UNSPEC TY 03/12/2015 JABARI ADAMES MD Ot 305.1 TOBACCO USE DISORDER 03/12/2015 JABARI ADAMES MD Ot 722.90 DISC DIS NEC/NOS-UNSPEC 03/12/2015 JABARI ADAMES MD Ot V15.3 HX OF IRRADIATION 03/12/2015 JABARI ADAMES MD Ot V58.69 OTH MED,LT,CURRENT USE 03/12/2015 JABARI ADAMES MD Ot V87.41 PERSONAL HISTORY OF ANTINEOPLASTIC CHEMO 05/21/2015 Ot 173.42 05/21/2015 Ot 784.2 05/21/2015 Ot 173.42 05/21/2015 Ot 784.2 05/21/2015 Ot V72.84 05/21/2015 Ot V74.8 05/21/2015 Ot 784.2 05/21/2015 LENA HORNER MD Ot 146.0 05/21/2015 LENA HORNER MD Ot V72.84 05/21/2015 JABARI ADAMES MD Ot 593.2 05/21/2015 JABARI ADAMES MD Ot 789.1 05/21/2015 JABARI ADAMES MD Ot 146.0 05/21/2015 JABARI ADAMES MD Ot 780.39 05/21/2015 SANDRA MITCHELL MD Ot 433.30 05/21/2015 SOREN GUILLAUME MD Ot 737.10 05/21/2015 SOREN GUILLAUME MD Ot V72.83 05/21/2015 ROSANGELA PONCE, JABARI Garcia Ot 070.54 05/21/2015 ROSANGELA PONCE, JABARI Garcia Ot 146.0 05/21/2015 ROSANGELA PONCE, JABARI Garcia Ot 198.89 05/21/2015 ROSANGELA PONCE, JABARI Garcia Ot 250.00 05/21/2015 ROSANGELA PONCE, JABARI Gacria Ot 305.1 05/21/2015 ROSANGELA PONCE, JABARI Garcia Ot 722.90 05/21/2015 ROSANGELA PONCE, JABARI Zelaya Ot V15.3 05/21/2015 ROSANGELA PONCE, JABARI Garcia Ot V58.69 05/21/2015 ROSANGELA PONCE, JABARI Zelaya Ot V87.41 06/01/2015 Ot 173.42 06/01/2015 Ot 784.2 06/01/2015 Ot 173.42 06/01/2015 Ot 784.2 06/01/2015 Ot V72.84 06/01/2015 Ot V74.8 06/01/2015 Ot 784.2 06/01/2015 EVENS PONCE, LENA Sherman Ot 146.0 06/01/2015 EVENS PONCE, LENA Sherman Ot V72.84 06/01/2015 ROSANGELA PONCE, JABARI Zelaya Ot 593.2 06/01/2015 ROSANGELA PONCE, JABARI Zelaya Ot 789.1 06/01/2015 ROSANGELA PONCE, JABARI Garcia Ot 146.0 06/01/2015 ROSANGELA PONCE, JABARI Garcia Ot 780.39 06/01/2015 SANDRA MITCHELL MD Ot 433.30 06/01/2015 MARKELL PONCE, SOREN Mcgowan Ot 737.10 06/01/2015 MARKELL PONCE, SOREN Mcgowna Ot V72.83 06/01/2015 ROSANGELA PONCE, JABARI Garcia Ot 070.54 06/01/2015 ROSANGELA PONCE, JABARI Garcia Ot 146.0 06/01/2015 ROSANGELA PONCE, JABARI Garcia Ot 198.89 06/01/2015 ROSANGELA PONCE, JABARI Garcia Ot 250.00 06/01/2015 ROSNAGELA PONCE, JABARI Garcia Ot 305.1 06/01/2015 ROSANGELA PONCE, JABARI Garcia Ot 722.90 06/01/2015 ROSANGELA PONCE, JABARI Garcia Ot V15.3 06/01/2015 ROSANGELA PONCE, JABARI Zelaya Ot V58.69 06/01/2015 ROSANGELA PONCE, JABARI Zelaya Ot V87.41 06/05/2015 ROSANGELA PONCE, JABARI Garcia Ot 070.54 06/05/2015 ROSANGELA PONCE, JABARI K Ot 146.0 06/05/2015 ROSANGELA PONCE, JABARI K Ot 198.89 06/05/2015 ROSANGELA PONCE, JABARI K Ot 250.00 06/05/2015 ROSANGELA PONCE, JABARI K Ot 305.1 06/05/2015 ROSANGELA PONCE, JABARI K Ot 722.90 06/05/2015 ROSANGELA PONCE, JABARI K Ot V15.3 06/05/2015 ROSANGELA PONCE, JABARI K Ot V58.69 06/05/2015 ROSANGELA PONCE, JABARI K Ot V87.41 06/12/2015 ROSANGELA PONCE, JABARI K Ot 070.54 06/12/2015 ROSANGELA PONCE, JABARI K Ot 146.0 06/12/2015 ROSANGELA PONCE, JABARI K Ot 198.89 06/12/2015 ROSANGELA PONCE, JABARI Garcia Ot 250.00 06/12/2015 ROSANGELA PONCE, JABARI K Ot 305.1 06/12/2015 ROSANGELA PONCE, JABARI K Ot 722.90 06/12/2015 ROSANGELA PONCE, JABARI Garcia Ot V15.3 06/12/2015 ROSANGELA PONCE, JABARI Garcia Ot V58.69 06/12/2015 ROSANGELA PONCE, JABARI K Ot V87.41 06/13/2015 ROSANGELA PONCE, JABARI K Ot 070.54 06/13/2015 ROSANGELA PONCE, JABARI K Ot 146.0 06/13/2015 ROSANGELA PONCE, JABARI Garcia Ot 198.89 06/13/2015 ROSANGELA PONCE, JABARI K Ot 250.00 06/13/2015 ROSANGELA PONCE, JABARI K Ot 305.1 06/13/2015 ROSANGELA PONCE, JABARI K Ot 722.90 06/13/2015 ROSANGELA PONCE, JABARI K Ot V15.3 06/13/2015 ROSANGELA PONCE, JABARI K Ot V58.69 06/13/2015 ROSANGELA PONCE, JABARI K Ot V87.41 06/20/2015 ROSANGELA PONCE, JABARI K Ot 070.54 06/20/2015 ROSANGELA PONCE, JABARI K Ot 146.0 06/20/2015 ROSANGELA PONCE, JABARI K Ot 198.89 06/20/2015 ROSANGELA PONCE, JABARI K Ot 250.00 06/20/2015 ROSANGELA PONCE, JABARI K Ot 305.1 06/20/2015 ROSANGELA PONCE, JABARI K Ot 722.90 06/20/2015 ROSANGELA PONCE, JABARI K Ot V15.3 06/20/2015 ROSANGELA PONCE, JABARI K Ot V58.69 06/20/2015 ROSANGELA PONCE, JABARI K Ot V87.41 06/22/2015 ROSANGELA PONCE, JABARI K Ot 146.0 06/22/2015 ROSANGELA PONCE, JABARI K Ot 723.1 06/25/2015 ROSANGELA PONCE, JABARI K Ot 146.0 06/25/2015 ROSANGELA PONCE, JABARI K Ot 723.1 07/11/2015 ROSANGELA PONCE, JABARI K Ot 146.0 07/11/2015 ROSANGELA PONCE, JABARI K Ot 723.1 08/06/2015 ROSANGELA PONCE, JABARI K Ot 070.54 08/06/2015 ROSANGELA PONCE, JABARI K Ot 146.0 08/06/2015 ROSANGELA PONCE, JABARI K Ot 198.89 08/06/2015 ROSANGELA PONCE, JABARI K Ot 250.00 08/06/2015 ROSANGELA PNOCE, JABARI K Ot 305.1 08/06/2015 ROSANGELA PONCE, JABARI K Ot 722.90 08/06/2015 ROSANGELA PONCE, JABARI K Ot V15.3 08/06/2015 ROSANGELA PONCE, JABARI K Ot V58.69 08/06/2015 ROSANGELA PONCE, JABARI Garcia Ot V87.41 08/07/2015 ROSANGELA PONCE, JABARI K Ot 146.0 08/07/2015 ROSANGELA PONCE, JABARI K Ot 723.1 08/14/2015 ROSANGELA PONCE, JABARI K Ot 070.54 08/14/2015 ROSANGELA PONCE, JABARI K Ot 146.0 08/14/2015 ROSANGELA PONCE, JABARI K Ot 198.89 08/14/2015 ROSANGELA PONCE, JABARI Garcia Ot 250.00 08/14/2015 ROSANGELA PONCE, JABARI K Ot 305.1 08/14/2015 ROSANGELA PONCE, JABARI K Ot 722.90 08/14/2015 ROSANGELA PONCE, JABARI K Ot V15.3 08/14/2015 ROSANGELA PONCE, JABARI K Ot V58.69 08/14/2015 ROSANGELA PONCE, JABARI K Ot V87.41 08/16/2015 ROSANGELA PONCE, JABARI K Ot 070.54 08/16/2015 ROSANGELA PONCE, JABARI K Ot 146.0 08/16/2015 ROSANGELA PONCE, JABARI K Ot 198.89 08/16/2015 ROSANGELA PONCE, JABARI K Ot 250.00 08/16/2015 ROSANGELA PONCE, JABARI K Ot 305.1 08/16/2015 ROSANGELA PONCE, JABARI K Ot 722.90 08/16/2015 ROSANGELA PONCE, JABARI K Ot V15.3 08/16/2015 ROSANGELA PONCE, JABARI K Ot V58.69 08/16/2015 JABARI ADAMES MD Ot V87.41 08/22/2015 ROSANGELA PONCE, JABARI Zelaya Ot 070.54 CHRONIC HEPATITIS C W/O HEPATIC COMA 08/22/2015 ROSANGELA PONCE, JABARI Zelaya Ot 146.0 MALIGNANT NEOPL TONSIL 08/22/2015 ROSANGELA PONCE, JABARI Zelaya Ot 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 08/22/2015 ROSANGELA PONCE, JABARI Zelaya Ot 250.00 DIAB AVERY WO COMPL, TYPE II OR UNSPEC TY 08/22/2015 ROSANGELA PONCE, JABARI Zelaya Ot 305.1 TOBACCO USE DISORDER 08/22/2015 ROSANGELA PONCE, JABARI Zelaya Ot 722.90 DISC DIS NEC/NOS-UNSPEC 08/22/2015 ROSANGELA PONCE, JABARI Zelaya Ot V15.3 HX OF IRRADIATION 08/22/2015 ROSANGELA PONCE, JABARI Zelaya Ot V58.69 OT MED,LT,CURRENT USE 08/22/2015 ROSANGELA PONCE, JABARI Zelaya Ot V87.41 PERSONAL HISTORY OF ANTINEOPLASTIC CHEMO 11/01/2015 JABARI ADAMES MD Ot 070.54 11/01/2015 JABARI ADAMES MD Ot 146.0 11/01/2015 JABARI ADAMES MD Ot 198.89 11/01/2015 JABARI ADAMES MD Ot 250.00 11/01/2015 JABARI ADAMES MD Ot 305.1 11/01/2015 JABARI ADAMES MD Ot 722.90 11/01/2015 JABARI ADAMES MD Ot V15.3 11/01/2015 JABARI ADAMES MD Ot V58.69 11/01/2015 JABARI ADAMES MD Ot V87.41 11/30/2015 ROSANGELA PONCE, JABARI Zelaya Ot 070.54 11/30/2015 ROSANGELA PONCE, JABARI Zelaya Ot 146.0 11/30/2015 JABARI ADAMES MD Ot 198.89 11/30/2015 JABARI ADAMES MD Ot 250.00 11/30/2015 ROSANGELA PONCE, JABARI Zelaya Ot 305.1 11/30/2015 JABARI ADAMES MD Ot 722.90 11/30/2015 JABARI ADAMES MD Ot V15.3 11/30/2015 ROSANGELA PONCE, JABARI Zelaya Ot V58.69 11/30/2015 JABARI ADAMES MD Ot V87.41 01/07/2016 ROSANGELA PONCE, JABARI Zelaya Ot 070.54 01/07/2016 ROSANGELA PONCE, JABARI Zelaya Ot 146.0 01/07/2016 JABARI ADAMES MD Ot 198.89 01/07/2016 ROSANGELA PONCE, JABARI Zelaya Ot 250.00 01/07/2016 ROSANGELA PONCE, JABARI Zelaya Ot 305.1 01/07/2016 ROSANGELA PONCE, JABARI Zelaya Ot 722.90 01/07/2016 ROSANGELA PONCE, JABARI Zelaya Ot V15.3 01/07/2016 ROSANGELA PONCE, JABARI Zelaya Ot V58.69 01/07/2016 ROSANGELA PONCE, JABARI Zelaya Ot V87.41 02/04/2016 Ot 173.42 02/04/2016 Ot 784.2 02/04/2016 Ot 173.42 02/04/2016 Ot 784.2 02/04/2016 Ot V72.84 02/04/2016 Ot V74.8 02/04/2016 Ot 784.2 02/04/2016 EVENS PONCE, ELNA Sherman Ot 146.0 02/04/2016 EVENS PONCE, LENA Sherman Ot V72.84 02/04/2016 ROSANGELA PONCE, JABARI Zelaya Ot 593.2 02/04/2016 ROSANGELA PONCE, JABARI Zelaya Ot 789.1 02/04/2016 ROSANGELA PONCE, JABARI Zelaya Ot 146.0 02/04/2016 ROSANGELA PONCE, JABARI Zelaya Ot 780.39 02/04/2016 STEPHEN PONCE, SANDRA Zelaya Ot 433.30 02/04/2016 MARKELL PONCE, SOERN Mcgowan Ot 737.10 02/04/2016 MARKELL PONCE, SOREN Mcgowan Ot V72.83 02/04/2016 ROSANGELA PONCE, JABARI Zelaya Ot 146.0 02/04/2016 ROSANGELA PONCE, JABARI Zelaya Ot 723.1 02/04/2016 ROSANGELA PONCE, JABARI Zelaya Ot B18.2 02/04/2016 ROSANGELA PONCE, JABARI Zelaya Ot C09.9 02/04/2016 ROSANGELA PONCE, JABARI Zelaya Ot F17.210 02/04/2016 ROSANGELA PONCE, JABARI Zelaya Ot M41.9 02/04/2016 ROSANGELA PONCE, JABARI Zelaya Ot Z79.899 02/04/2016 ROSANGELA PONCE, JABARI Zelaya Ot Z92.21 02/04/2016 ROSANGELA PONCE, JABARI Zelaya Ot Z92.3 02/05/2016 MARKELL PONCE, SOREN Mcgowan Ot Z09 02/05/2016 MARKELL PONCE, SOREN Mcgowan Ot Z98.1 02/11/2016 Ot 173.42 02/11/2016 Ot 784.2 02/11/2016 Ot 173.42 02/11/2016 Ot 784.2 02/11/2016 Ot V72.84 02/11/2016 Ot V74.8 02/11/2016 Ot 784.2 02/11/2016 EVENS PONCE, LENA Sherman Ot 146.0 02/11/2016 EVENS PNOCE, LENA Sherman Ot V72.84 02/11/2016 ROSANGELA PONCE, JABARI Zelaya Ot 593.2 02/11/2016 ROSANGELA PONCE, JABARI Zelaya Ot 789.1 02/11/2016 ROSANGELA PONCE, JABARI Zelaya Ot 146.0 02/11/2016 ROSANGELA PONCE, JABARI Zelaya Ot 780.39 02/11/2016 HANY MITCHELL MDLAS Garcia Ot 433.30 02/11/2016 MARKELL PONCE, SOREN Mcgowan Ot 737.10 02/11/2016 SOREN GUILLAUME MD Ot V72.83 02/11/2016 ROSANGELA PONCE, JABARI Zelaya Ot 146.0 02/11/2016 ROSANGELA PONCE, JABARI Zelaya Ot 723.1 02/11/2016 ROSANGELA PONCE, JABARI Zelaya Ot B18.2 02/11/2016 ROSANGELA PONCE, JABARI Zelaya Ot C09.9 02/11/2016 ROSANGELA PONCE, JABARI Zelaya Ot F17.210 02/11/2016 ROSANGELA PONCE, JABARI Zelaya Ot M41.9 02/11/2016 ROSANGELA PONCE, JABARI Zelaya Ot Z79.899 02/11/2016 ROSANGELA PONCE, JABARI Zelaya Ot Z92.21 02/11/2016 ROSANGELA PONCE, JABARI Zelaya Ot Z92.3 02/11/2016 SOREN GUILLAUME MD Ot Z09 02/11/2016 SOREN GUILLAUME MD Ot Z98.1 02/11/2016 SOREN GUILLAUME MD Ot M96.1 POSTLAMINECTOMY SYNDROME, NOT ELSEWHERE 02/11/2016 SOREN GUILLAUME MD Ot Z01.812 ENCOUNTER FOR PREPROCEDURAL LABORATORY E 02/11/2016 SOREN GUILLAUME MD Ot Z11.2 ENCOUNTER FOR SCREENING FOR OTHER BACTER 02/11/2016 SOREN GUILLAUME MD Ot Z98.1 ARTHRODESIS STATUS 02/12/2016 SOREN GUILLUAME MD Ot M96.1 02/12/2016 SOREN GUILLAUME MD Ot Z01.812 02/12/2016 SOREN GUILLAUME MD Ot Z11.2 02/12/2016 SOREN GUILLAUME MD Ot Z98.1 02/12/2016 ROSANGELA PONCE, JABARI Zelaya Ot B18.2 02/12/2016 ROSANGELA PONCE, JABARI Zelaya Ot C09.9 02/12/2016 ROSANGELA PONCE, JABARI Zelaya Ot F17.210 02/12/2016 ROSANGELA PONCE, JABARI Zelaya Ot M41.9 02/12/2016 ROSANGELA PONCE, JABARI Zelaya Ot Z79.899 02/12/2016 ROSANGELA PONCE, JABARI Zelaya Ot Z92.21 02/12/2016 ROSANGELA PONCE, JABARI Zelaya Ot Z92.3 02/20/2016 ROSANGELA PONCE, JABARI Zelaya Ot B18.2 02/20/2016 ROSANGELA PONCE, JABARI Zelaya Ot C09.9 02/20/2016 ROSANGELA PONCE, JABARI Zelaya Ot F17.210 02/20/2016 ROSANGELA PONCE, JABARI Zelaya Ot M41.9 02/20/2016 ROSANGELA PONCE, JABARI Zelaya Ot Z79.899 02/20/2016 ROSANGELA PONCE, JABARI Zelaya Ot Z92.21 02/20/2016 ROSANGELA PONCE, JAABRI Zelaya Ot Z92.3 02/20/2016 Ot 173.42 02/20/2016 Ot 784.2 02/20/2016 Ot 173.42 02/20/2016 Ot 784.2 02/20/2016 Ot V72.84 02/20/2016 Ot V74.8 02/20/2016 Ot 784.2 02/20/2016 EVENS PONCE, LENA Sherman Ot 146.0 02/20/2016 EVENS PONCE, LENA Sherman Ot V72.84 02/20/2016 ROSANGELA PONCE, JABARI Zelaya Ot 593.2 02/20/2016 ROSANGELA PONCE, JABARI Garcia Ot 789.1 02/20/2016 ROSANGELA PONCE, JABARI Garcia Ot 146.0 02/20/2016 ROSANGELA PONCE, JABARI Garcia Ot 780.39 02/20/2016 SANDRA MITCHELL MD Ot 433.30 02/20/2016 MARKELL PONCE, SOREN Mcgowan Ot 737.10 02/20/2016 MARKELL PONCE, SOREN Mcgowan Ot V72.83 02/20/2016 ROSANGELA PONCE, JABARI Garcia Ot 146.0 02/20/2016 ROSANGELA PONCE, JABARI Garcia Ot 723.1 02/20/2016 ROSANGELA PONCE, JABARI Garcia Ot B18.2 02/20/2016 ROSANGELA PONCE, JABARI Garcia Ot C09.9 02/20/2016 ROSANGELA PONCE, JABARI Zelaya Ot F17.210 02/20/2016 ROSANGELA PONCE, JABARI Zelaya Ot M41.9 02/20/2016 ROSANGELA PONCE, JABARI Zelaya Ot Z79.899 02/20/2016 ROSANGELA PONCE, JABARI Zelaya Ot Z92.21 02/20/2016 ROSANGELA PONCE, JABARI Zelaya Ot Z92.3 02/20/2016 MARKELL PONCE, SOREN Mcgowan Ot Z09 02/20/2016 MARKELL PONCE, SOREN Mcgowan Ot Z98.1 02/20/2016 Ot 173.42 02/20/2016 Ot 784.2 02/20/2016 Ot 173.42 02/20/2016 Ot 784.2 02/20/2016 Ot V72.84 02/20/2016 Ot V74.8 02/20/2016 Ot 784.2 02/20/2016 EVENS PONCE, LENA Sherman Ot 146.0 02/20/2016 EVENS PONCE, LENA Sherman Ot V72.84 02/20/2016 ROSANGELA PONCE, JABARI Zelaya Ot 593.2 02/20/2016 ROSANGELA PONCE, JABARI Zelaya Ot 789.1 02/20/2016 ROSANGELA PONCE, JABARI Zelaya Ot 146.0 02/20/2016 ROSANGELA PONCE, JABARI Zelaya Ot 780.39 02/20/2016 STEPHEN PONCE, SANDRA K Ot 433.30 02/20/2016 MARKELL PONCE, SOREN Mcgowan Ot 737.10 02/20/2016 MARKELL PONCE, SOREN Mcgowan Ot V72.83 02/20/2016 ROSANGELA PONCE, JABARI Zelaya Ot 146.0 02/20/2016 ROSANGELA PONCE, JABARI Zelaya Ot 723.1 02/20/2016 ROSANGELA PONCE, JABARI Zelaya Ot B18.2 02/20/2016 ROSANGELA PONCE, JABARI Zelaya Ot C09.9 02/20/2016 ROSANGELA PONCE, JABARI Zelaya Ot F17.210 02/20/2016 ROSANGELA PONCE, JABARI Zelaya Ot M41.9 02/20/2016 ROSANGELA PONCE, JABARI Zelaya Ot Z79.899 02/20/2016 ROSANGELA PONCE, JABARI Zelaya Ot Z92.21 02/20/2016 ROSANGELA PONCE, JABARI Zelaya Ot Z92.3 02/20/2016 MARKELL PONCE, SOREN Mcgowan Ot Z09 02/20/2016 MARKELL PNOCE, SOREN Mcgowan Ot Z98.1 02/26/2016 MARKELL PONCE, SOREN Mcgowan Ot Z09 02/26/2016 MARKELL PONCE, SOREN Mcgowan Ot Z98.1 02/27/2016 SOREN GUILLAUME MD Ot D62 ACUTE POSTHEMORRHAGIC ANEMIA 02/27/2016 SOREN GUILLAUME MD Ot E11.9 TYPE 2 DIABETES MELLITUS WITHOUT COMPLIC 02/27/2016 SOREN GUILLAUME MD Ot E86.1 HYPOVOLEMIA 02/27/2016 SOREN GUILLAUME MD Ot F17.210 NICOTINE DEPENDENCE, CIGARETTES, UNCOMPL 02/27/2016 SOREN GUILLAUME MD Ot F32.9 MAJOR DEPRESSIVE DISORDER, SINGLE EPISOD 02/27/2016 SOREN GUILLAUME MD, Ot F41.9 ANXIETY DISORDER, UNSPECIFIED 02/27/2016 SOREN GUILLAUME MD Ot G95.89 OTHER SPECIFIED DISEASES OF SPINAL CORD 02/27/2016 SOREN GUILLAUME MD, Ot I10 ESSENTIAL (PRIMARY) HYPERTENSION 02/27/2016 SOREN GUILLAUME MD Ot I95.81 POSTPROCEDURAL HYPOTENSION 02/27/2016 SOREN GUILLAUME MD, Ot J44.9 CHRONIC OBSTRUCTIVE PULMONARY DISEASE, U 02/27/2016 SOREN GUILLAUME MD, Ot J98.11 ATELECTASIS 02/27/2016 SOREN GUILLAUME MD, Ot K56.7 ILEUS, UNSPECIFIED 02/27/2016 SOREN GUILLAUME MD, Ot M50.11 CERV DISC DISORDER W RADICULOPATHY, HIGH 02/27/2016 SOREN GUILLAUME MD Ot M96.0 PSEUDARTHROSIS AFTER FUSION OR ARTHRODES 02/27/2016 SOREN GUILLAUME MD Ot 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 02/27/2016 SOREN GUILLAUME MD Ot R50.82 POSTPROCEDURAL FEVER 02/27/2016 SOREN GUILLAUME MD Ot T84.216A BREAKDOWN (MECHANICAL) OF INT FIX OF ALLA 02/27/2016 SOREN GUILLAUME MD Ot 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, 02/27/2016 SOREN GUILLAUME MD Ot Z86.19 PERSONAL HISTORY OF OTHER INFECTIOUS AND 03/05/2016 SOREN GUILLAUME MD, Ot Z09 03/05/2016 SOREN GUILLAUME MD, Ot Z98.1 03/11/2016 Ot 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 03/11/2016 Ot 784.2 SWELLING IN HEAD NECK 03/11/2016 Ot 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 03/11/2016 Ot 784.2 SWELLING IN HEAD NECK 03/11/2016 Ot V72.84 EXAM PRE- OPERATIVE NOS 03/11/2016 Ot V74.8 SCREEN- BACTERIAL DIS NEC 03/11/2016 Ot 784.2 SWELLING IN HEAD NECK 03/11/2016 EVENS PONCE, LENA Sherman Ot 146.0 MALIGNANT NEOPL TONSIL 03/11/2016 EVENS PONCE, LENA Sherman Ot V72.84 EXAM PRE-OPERATIVE NOS 03/11/2016 JABARI ADAMES MD Ot 593.2 CYST OF KIDNEY, ACQUIRED 03/11/2016 JABARI ADAMES MD Ot 789.1 HEPATOMEGALY 03/11/2016 JABARI ADAMES MD Ot 146.0 MALIGNANT NEOPL TONSIL 03/11/2016 JABARI ADAMES MD Ot 780.39 OTHER CONVULSIONS 03/11/2016 STEPHEN PONCE, SANDRA Zelaya Ot 433.30 MULT BILTRAL ARTERY OCCLUSION WO CEREBRA 03/11/2016 SOREN GUILLAUME MD Ot 737.10 KYPHOSIS NOS 03/11/2016 SOREN GUILLAUME MD Ot V72.83 EXAM PRE-OPERATIVE NEC 03/11/2016 JABARI ADAMES MD Ot 146.0 MALIGNANT NEOPL TONSIL 03/11/2016 JABARI ADAMES MD Ot 723.1 CERVICALGIA 03/11/2016 JABARI ADAMES MD Ot B18.2 CHRONIC VIRAL HEPATITIS C 03/11/2016 JABARI ADAMES MD Ot C09.9 MALIGNANT NEOPLASM OF TONSIL, UNSPECIFIE 03/11/2016 JABARI ADAMES MD Ot F17.210 NICOTINE DEPENDENCE, CIGARETTES, UNCOMPL 03/11/2016 JABARI ADAMES MD Ot M41.9 SCOLIOSIS, UNSPECIFIED 03/11/2016 JABARI ADAMES MD Ot Z79.899 OTHER HITCHER (CURRENT) DRUG THERAPY 03/11/2016 JABARI ADAMES MD Ot Z92.21 PERSONAL HISTORY OF ANTINEOPLASTIC CHEMO 03/11/2016 JABARI ADAMES MD Ot Z92.3 PERSONAL HISTORY OF IRRADIATION 03/11/2016 SOREN GUILLAUME MD Ot Z09 ENCNTR FOR F/U EXAM AFT TRTMT FOR COND O 03/11/2016 SOREN GUILLAUME MD Ot Z98.1 ARTHRODESIS STATUS 03/18/2016 SOREN GUILLAUME MD, Ot M54.2 CERVICALGIA 04/03/2016 JABARI ADAMES MD Ot B18.2 CHRONIC VIRAL HEPATITIS C 04/03/2016 JABARI ADAMES MD Ot C09.9 MALIGNANT NEOPLASM OF TONSIL, UNSPECIFIE 04/03/2016 JABARI ADAMES MD Ot F17.210 NICOTINE DEPENDENCE, CIGARETTES, UNCOMPL 04/03/2016 JABARI ADAMES MD Ot M41.9 SCOLIOSIS, UNSPECIFIED 04/03/2016 JABARI ADAMES MD Ot Z79.899 OTHER RESIDENTIAL (CURRENT) DRUG THERAPY 04/03/2016 JABARI ADAMES MD Ot Z92.21 PERSONAL HISTORY OF ANTINEOPLASTIC CHEMO 04/03/2016 JABARI ADAMES MD Ot Z92.3 PERSONAL HISTORY OF IRRADIATION 04/04/2016 SOREN GUILLAUME MD Ot M54.2 CERVICALGIA 04/09/2016 JABARI ADAMES MD Ot B18.2 CHRONIC VIRAL HEPATITIS C 04/09/2016 JABARI ADAMES MD Ot C09.9 MALIGNANT NEOPLASM OF TONSIL, UNSPECIFIE 04/09/2016 JABARI ADAMES MD Ot F17.210 NICOTINE DEPENDENCE, CIGARETTES, UNCOMPL 04/09/2016 JABARI ADAMES MD Ot M41.9 SCOLIOSIS, UNSPECIFIED 04/09/2016 JABARI ADAMES MD Ot Z79.899 OTHER RESIDENTIAL (CURRENT) DRUG THERAPY 04/09/2016 JABARI ADAMES MD Ot Z92.21 PERSONAL HISTORY OF ANTINEOPLASTIC CHEMO 04/09/2016 JABARI ADAMES MD Ot Z92.3 PERSONAL HISTORY OF IRRADIATION 05/08/2016 JABARI ADAMES MD Ot B18.2 CHRONIC VIRAL HEPATITIS C 05/08/2016 JABARI ADAMES MD Ot C09.9 MALIGNANT NEOPLASM OF TONSIL, UNSPECIFIE 05/08/2016 JABARI ADAMES MD Ot F17.210 NICOTINE DEPENDENCE, CIGARETTES, UNCOMPL 05/08/2016 JABARI ADAMES MD Ot M41.9 SCOLIOSIS, UNSPECIFIED 05/08/2016 JABARI ADAMES MD Ot Z79.899 OTHER RESIDENTIAL (CURRENT) DRUG THERAPY 05/08/2016 JABARI ADAMES MD Ot Z92.21 PERSONAL HISTORY OF ANTINEOPLASTIC CHEMO 05/08/2016 JABARI ADAMES MD Ot Z92.3 PERSONAL HISTORY OF IRRADIATION 08/06/2016 Ot 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 08/06/2016 Ot 784.2 SWELLING IN HEAD NECK 08/06/2016 Ot 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 08/06/2016 Ot 784.2 SWELLING IN HEAD NECK 08/06/2016 Ot V72.84 EXAM PRE- OPERATIVE NOS 08/06/2016 Ot V74.8 SCREEN- BACTERIAL DIS NEC 08/06/2016 Ot 784.2 SWELLING IN HEAD NECK 08/06/2016 LENA HORNER MD Ot 146.0 MALIGNANT NEOPL TONSIL 08/06/2016 EVENS PONCE, LENA Sherman Ot V72.84 EXAM PRE-OPERATIVE NOS 08/06/2016 JABARI ADAMES MD Ot 593.2 CYST OF KIDNEY, ACQUIRED 08/06/2016 JABARI ADAMES MD Ot 789.1 HEPATOMEGALY 08/06/2016 JABARI ADAMES MD Ot 146.0 MALIGNANT NEOPL TONSIL 08/06/2016 JABARI ADAMES MD Ot 780.39 OTHER CONVULSIONS 08/06/2016 STEPHEN PONCE, SANDRA Zelaya Ot 433.30 MULT BILTRAL ARTERY OCCLUSION WO CEREBRA 08/06/2016 SOREN GUILLAUME MD Ot 737.10 KYPHOSIS NOS 08/06/2016 SOREN GUILLAUME MD Ot V72.83 EXAM PRE-OPERATIVE NEC 08/06/2016 JABARI ADAMES MD Ot 146.0 MALIGNANT NEOPL TONSIL 08/06/2016 JABARI ADAMES MD Ot 723.1 CERVICALGIA 08/06/2016 SOREN GUILLAUME MD Ot Z09 ENCNTR FOR F/U EXAM AFT TRTMT FOR COND O 08/06/2016 SOREN GUILLAUME MD Ot Z98.1 ARTHRODESIS STATUS 08/06/2016 JABARI ADAMES MD Ot B18.2 CHRONIC VIRAL HEPATITIS C 08/06/2016 JABARI ADAMES MD Ot C09.9 MALIGNANT NEOPLASM OF TONSIL, UNSPECIFIE 08/06/2016 JABARI ADAMES MD Ot F17.210 NICOTINE DEPENDENCE, CIGARETTES, UNCOMPL 08/06/2016 JABARI ADAMES MD Ot M41.9 SCOLIOSIS, UNSPECIFIED 08/06/2016 JABARI ADAMES MD Ot Z79.899 OTHER HITCHER (CURRENT) DRUG THERAPY 08/06/2016 JABARI ADAMES MD Ot Z92.21 PERSONAL HISTORY OF ANTINEOPLASTIC CHEMO 08/06/2016 JABARI ADAMES MD Ot Z92.3 PERSONAL HISTORY OF IRRADIATION 08/07/2016 SOREN GUILLAUME MD Ot R63.4 ABNORMAL WEIGHT LOSS 08/29/2016 SOREN GUILLAUME MD Ot R63.4 ABNORMAL WEIGHT LOSS 09/05/2016 ASHU PITT DO Ot R13.10 DYSPHAGIA, UNSPECIFIED 09/05/2016 ASHU PITT DO Ot R63.4 ABNORMAL WEIGHT LOSS 09/05/2016 ASHU PITT DO Ot Z01.818 ENCOUNTER FOR OTHER PREPROCEDURAL EXAMIN 09/16/2016 SOREN GUILLAUME MD Ot R63.4 ABNORMAL WEIGHT LOSS 11/19/2016 Ot 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 11/19/2016 Ot 784.2 SWELLING IN HEAD NECK 11/19/2016 Ot 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 11/19/2016 Ot 784.2 SWELLING IN HEAD NECK 11/19/2016 Ot V72.84 EXAM PRE- OPERATIVE NOS 11/19/2016 Ot V74.8 SCREEN- BACTERIAL DIS NEC 11/19/2016 Ot 784.2 SWELLING IN HEAD NECK 11/19/2016 EVENS PONCE, LENA Sherman Ot 146.0 MALIGNANT NEOPL TONSIL 11/19/2016 LENA HORNER MD Ot V72.84 EXAM PRE-OPERATIVE NOS 11/19/2016 ROSANGELA PONCE, JABARI Zelaya Ot 593.2 CYST OF KIDNEY, ACQUIRED 11/19/2016 JABARI ADAMES MD Ot 789.1 HEPATOMEGALY 11/19/2016 JABARI ADAMES MD Ot 146.0 MALIGNANT NEOPL TONSIL 11/19/2016 JABARI ADAMES MD Ot 780.39 OTHER CONVULSIONS 11/19/2016 STEPHEN PONCE, SANDRA Zelaya Ot 433.30 MULT BILTRAL ARTERY OCCLUSION WO CEREBRA 11/19/2016 SOREN GUILLAUME MD Ot 737.10 KYPHOSIS NOS 11/19/2016 SOREN GUILLAUME MD Ot V72.83 EXAM PRE-OPERATIVE NEC 11/19/2016 JABARI ADAMES MD Ot 146.0 MALIGNANT NEOPL TONSIL 11/19/2016 JABARI ADAMES MD Ot 723.1 CERVICALGIA 11/19/2016 SOREN GUILLAUME MD Ot Z09 ENCNTR FOR F/U EXAM AFT TRTMT FOR COND O 11/19/2016 SOREN GUILLAUME MD Ot Z98.1 ARTHRODESIS STATUS 11/19/2016 JABARI ADAMES MD Ot B18.2 CHRONIC VIRAL HEPATITIS C 11/19/2016 JABARI ADAMES MD Ot C09.9 MALIGNANT NEOPLASM OF TONSIL, UNSPECIFIE 11/19/2016 JABARI ADAMES MD Ot F17.210 NICOTINE DEPENDENCE, CIGARETTES, UNCOMPL 11/19/2016 JABARI ADAMES MD Ot M41.9 SCOLIOSIS, UNSPECIFIED 11/19/2016 JABARI ADAMES MD Ot Z79.899 OTHER HITCHER (CURRENT) DRUG THERAPY 11/19/2016 JABARI ADAMES MD Ot Z92.21 PERSONAL HISTORY OF ANTINEOPLASTIC CHEMO 11/19/2016 JABARI ADAMES MD Ot Z92.3 PERSONAL HISTORY OF IRRADIATION 11/19/2016 MARKELL PONCE, SOREN Mcgowan Ot R63.4 ABNORMAL WEIGHT LOSS 11/19/2016 ASHU PITT DO Ot R13.10 DYSPHAGIA, UNSPECIFIED 11/19/2016 ASHU PITT DO Ot R63.4 ABNORMAL WEIGHT LOSS 11/19/2016 ASHU PITT DO Ot Z01.818 ENCOUNTER FOR OTHER PREPROCEDURAL EXAMIN 11/19/2016 ASHU PITT DO Ot K40.90 UNIL INGUINAL HERNIA, W/O OBST OR GANGR, 11/19/2016 ASHU PITT DO Ot Z01.818 ENCOUNTER FOR OTHER PREPROCEDURAL EXAMIN 11/19/2016 ASHU PITT DO Ot Z11.2 ENCOUNTER FOR SCREENING FOR OTHER BACTER 11/20/2016 ASHU PITT DO Ot K40.90 UNIL INGUINAL HERNIA, W/O OBST OR GANGR, 11/20/2016 ASHU PITT DO Ot Z01.818 ENCOUNTER FOR OTHER PREPROCEDURAL EXAMIN 11/20/2016 ASHU PITT DO Ot Z11.2 ENCOUNTER FOR SCREENING FOR OTHER BACTER 11/20/2016 ASHU PITT DO Ot K40.90 UNIL INGUINAL HERNIA, W/O OBST OR GANGR, 11/20/2016 ASHU PITT DO Ot Z79.899 OTHER RESIDENTIAL (CURRENT) DRUG THERAPY 11/21/2016 ASHU PITT DO Ot K40.90 UNIL INGUINAL HERNIA, W/O OBST OR GANGR, 11/21/2016 ASHU PITT DO Ot Z79.899 OTHER RESIDENTIAL (CURRENT) DRUG THERAPY 11/23/2016 MERVIN BUCIO MD Ot 462 ACUTE PHARYNGITIS 11/23/2016 MERVIN BUCIO MD Ot 787.03 VOMITING ALONE 11/25/2016 ASHU PITT DO Ot K40.90 UNIL INGUINAL HERNIA, W/O OBST OR GANGR, 11/25/2016 ASHU PITT DO Ot Z79.899 OTHER RESIDENTIAL (CURRENT) DRUG THERAPY 05/23/2017 MERVIN BUCIO MD Ot 462 ACUTE PHARYNGITIS 05/23/2017 MERVIN BUCIO MD Ot 787.03 VOMITING ALONE 07/24/2017 MERVIN BUCIO MD Ot 462 ACUTE PHARYNGITIS 07/24/2017 MERVIN BUCIO MD Ot 787.03 VOMITING ALONE 09/16/2017 Ot 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 09/16/2017 Ot 784.2 SWELLING IN HEAD NECK 09/16/2017 Ot 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 09/16/2017 Ot 784.2 SWELLING IN HEAD NECK 09/16/2017 Ot V72.84 EXAM PRE- OPERATIVE NOS 09/16/2017 Ot V74.8 SCREEN- BACTERIAL DIS NEC 09/16/2017 Ot 784.2 SWELLING IN HEAD NECK 09/16/2017 LENA HORNER MD Ot 146.0 MALIGNANT NEOPL TONSIL 09/16/2017 LEAN HORNER MD Ot V72.84 EXAM PRE-OPERATIVE NOS 09/16/2017 JABARI ADAMES MD Ot 593.2 CYST OF KIDNEY, ACQUIRED 09/16/2017 JABARI ADAMES MD Ot 789.1 HEPATOMEGALY 09/16/2017 JABARI ADAMES MD Ot 146.0 MALIGNANT NEOPL TONSIL 09/16/2017 JABARI ADAMES MD Ot 780.39 OTHER CONVULSIONS 09/16/2017 SANDRA MITCHELL MD Ot 433.30 MULT BILTRAL ARTERY OCCLUSION WO CEREBRA 09/16/2017 SOREN GUILLAUME MD Ot 737.10 KYPHOSIS NOS 09/16/2017 SOREN GUILLAUME MD Ot V72.83 EXAM PRE-OPERATIVE NEC 09/16/2017 JABARI ADAMES MD Ot 146.0 MALIGNANT NEOPL TONSIL 09/16/2017 JABARI ADAMES MD Ot 723.1 CERVICALGIA 09/16/2017 MARKELL PONCE, SOREN Mcgowan Ot Z09 ENCNTR FOR F/U EXAM AFT TRTMT FOR COND O 09/16/2017 SOREN GUILLAUME MD Ot Z98.1 ARTHRODESIS STATUS 09/16/2017 JABARI ADAMES MD Ot B18.2 CHRONIC VIRAL HEPATITIS C 09/16/2017 JABARI ADAMES MD Ot C09.9 MALIGNANT NEOPLASM OF TONSIL, UNSPECIFIE 09/16/2017 JABARI ADAMES MD, Ot F17.210 NICOTINE DEPENDENCE, CIGARETTES, UNCOMPL 09/16/2017 JABARI ADAMES MD Ot M41.9 SCOLIOSIS, UNSPECIFIED 09/16/2017 JABARI ADAMES MD, Ot Z79.899 OTHER RESIDENTIAL (CURRENT) DRUG THERAPY 09/16/2017 JABARI ADAEMS MD, Ot Z92.21 PERSONAL HISTORY OF ANTINEOPLASTIC CHEMO 09/16/2017 JABARI ADAMES MD, Ot Z92.3 PERSONAL HISTORY OF IRRADIATION 09/16/2017 SOREN GUILLAUME MD Ot R63.4 ABNORMAL WEIGHT LOSS 09/16/2017 ASHU PITT DO Ot R13.10 DYSPHAGIA, UNSPECIFIED 09/16/2017 ASHU PITT DO Ot R63.4 ABNORMAL WEIGHT LOSS 09/16/2017 ASHU PITT DO Ot Z01.818 ENCOUNTER FOR OTHER PREPROCEDURAL EXAMIN 09/19/2017 JON PHILIP DO, Ot B19.20 UNSPECIFIED VIRAL HEPATITIS C WITHOUT HE 09/19/2017 JON PHILIP DO Ot E11.40 TYPE 2 DIABETES MELLITUS WITH DIABETIC N 09/19/2017 JON PHILIP DO, Ot F17.210 NICOTINE DEPENDENCE, CIGARETTES, UNCOMPL 09/19/2017 JON PHILIP DO, Ot F31.9 BIPOLAR DISORDER, UNSPECIFIED 09/19/2017 JON PHILIP DO, Ot F41.9 ANXIETY DISORDER, UNSPECIFIED 09/19/2017 JON PHILIP DO, Ot G40.909 EPILEPSY, UNSP, NOT INTRACTABLE, WITHOUT 09/19/2017 JON PHILIP DO, Ot J18.9 PNEUMONIA, UNSPECIFIED ORGANISM 09/19/2017 JON PHILIP DO, Ot J44.9 CHRONIC OBSTRUCTIVE PULMONARY DISEASE, U 09/19/2017 JON PHILIP DO, Ot M19.91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 [id number] 09/05/2012 17:48:00 Document Registration [id number] 09/26/2009 09:00:00 Document Registration [id number] 09/26/2009 08:59:00 Document Registration [id number] 07/23/2009 10:31:00 Document Registration
[2017-11-18] MEDS ORDERED: ACETAMINOPHEN 500 MG TAB (TYLENOL) PO ONE (16:30)
[2017-11-18 16:37] LABS: BASOPHILS % (AUTO) 0 % (0-10); EOSINOPHILS % (AUTO) 0 % (0-10); HEMATOCRIT 33 % (40-54); HEMOGLOBIN 11.2 G/DL (13.3-17.7); LYMPHOCYTES # (AUTO) 0.8 X 10^3 (1.0-4.0); LYMPHOCYTES % (AUTO) 6 % (12-44); MEAN CORPUSCULAR HEMOGLOBIN 32 PG (25-34); MEAN CORPUSCULAR HGB CONC 34 G/DL (32-36); MEAN CORPUSCULAR VOLUME 94 FL (80-99); MEAN PLATELET VOLUME 10.6 FL (7.4-10.4); MONOCYTES # (AUTO) 0.7 X 10^3 (0.0-1.0); MONOCYTES % (AUTO) 5 % (0-12); NEUTROPHILS # (AUTO) 13.6 X 10^3 (1.8-7.8); NEUTROPHILS % (AUTO) 90 % (42-75); PLATELET COUNT 204 10^3/uL (130-400); RED CELL DISTRIBUTION WIDTH 12.5 % (10.0-14.5); WHITE BLOOD COUNT 15.2 10^3/uL (4.3-11.0)
[2017-11-18 16:51] LABS: BAND NEUTROPHILS 14 %; BASOPHILS % (MANUAL) 0 %; EOSINOPHILS % (MANUAL) 0 %; LYMPHOCYTES % (MANUAL) 4 %; MONOCYTES % (MANUAL) 2 %; NEUTROPHILS % (MANUAL) 80 %; RBC MORPH NORMAL
[2017-11-18 16:56] LABS: ABG BASE EXCESS -0.9 MMOL/L (-2.5-2.5); ABG OXYGEN SATURATION 59 % (94-100); ABG PCO2 38 MMHG (35-45); ABG PH 7.41 (7.37-7.43)
[2017-11-18 16:57] LABS: ABG PO2 37 MMHG (79-93); ALLENS TEST YES-POS; INSPIRED O2 2L; PATIENT TEMP 101.1; VENTILATOR NO
[2017-11-18 16:59] LABS: ALANINE AMINOTRANSFERASE 30 U/L (0-55); ALBUMIN 2.7 GM/DL (3.2-4.5); ALKALINE PHOSPHATASE 63 U/L (40-136); AMMONIA 19 UMOL/L (11-32); BILIRUBIN,TOTAL 0.8 MG/DL (0.1-1.0); BUN/CREATININE RATIO 33; CALCIUM 8.2 MG/DL (8.5-10.1); CARBON DIOXIDE 23 MMOL/L (21-32); CHLORIDE 110 MMOL/L (98-107); CREATININE SERUM 0.67 MG/DL (0.60-1.30); GFR ESTIMATED > 60; GLUCOSE 141 MG/DL (70-105); POTASSIUM 3.9 MMOL/L (3.6-5.0); SODIUM 142 MMOL/L (135-145); TOTAL PROTEIN 5.9 GM/DL (6.4-8.2)
[2017-11-18] MEDS ORDERED: APAP 325 MG/10.15 ML LIQ (TYLENOL) UDC PO ONE (17:00)
--- NOTE | 2017-11-18 17:08 | Diagnostic Imaging Report ---
INDICATION: Cough, fever and dyspnea. Portable AP upright view of the chest is obtained with comparison made to study of 09/16/2017. FINDINGS: There has been development of extensive airspace disease in the lower lobe of the right lung with lesser involvement of the left lung base. No pneumothorax is identified. There is no other evidence of significant change. IMPRESSION: 1. Findings are compatible with right lower lobe pneumonia with patchy pneumonitis or early pneumonia in the left lung base. Clinical correlation is recommended. Radiographic followup would be of use to document resolution. Dictated on workstation # [id number]
[2017-11-18 17:38] LABS: ABG BASE EXCESS -1.4 MMOL/L (-2.5-2.5); ABG OXYGEN SATURATION 93 % (94-100); ABG PCO2 32 MMHG (35-45); ABG PH 7.45 (7.37-7.43); ABG PO2 61 MMHG (79-93); ABG TCO2 23.1 MMOL/L (21.0-31.0)
[2017-11-18 17:39] LABS: ALLENS TEST YES-POS; INSPIRED O2 4 L; PATIENT TEMP 97.6; VENTILATOR NO
[2017-11-18] MEDS ORDERED: NS IV 1000 ML 1,000 ML IV SCH (18:00)
[2017-11-18] MEDS ORDERED: PIPERACILLIN SODIUM/TAZOBACTAM 4.5 GM in NS (IVPB) 100 ML IV ONE (18:00)
[2017-11-18] MEDS ORDERED: NS IV 1000 ML 1,000 ML ONE (18:01)
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
[2017-11-18 18:58] VITALS: BP 86/48
[2017-11-18] MEDS ORDERED: fentaNYL PATCH 12 MCG (DURAGESIC) TD SCH (19:15)
[2017-11-18] MEDS ORDERED: fentaNYL PATCH 100 MCG (DURAGESIC) TOP SCH (19:15)
[2017-11-18] MEDS ORDERED: fentaNYL PATCH 25 MCG (DURAGESIC) TOP SCH (19:15)
[2017-11-18] MEDS: NS IV 1000 ML 1,000 ML IV SCH (19:25)
[2017-11-18 22:15] VITALS: BP 106/66
[2017-11-18] MEDS ORDERED: DIAZEPAM 5 MG (VALIUM) TABLET PO ONE (22:30)
[2017-11-18 22:38] LABS: BILIRUBIN,URINE NEGATIVE (NEGATIVE); CLARITY,URINE CLEAR; COLOR,URINE AMBER; GLUCOSE, URINE (UA) NEGATIVE (NEGATIVE); KETONES,URINE NEGATIVE (NEGATIVE); LEUKOCYTE ESTERASE ,URINE 1+ (NEGATIVE); NITRITE,URINE NEGATIVE (NEGATIVE); PH,URINE 5 (5-9); PROTEIN,URINE 2+ (NEGATIVE); UROBILINOGEN,URINE 4 MG/DL (NORMAL)
[2017-11-18 22:47] LABS: SQUAMOUS EPITHELIAL CELL,UR RARE /HPF
[2017-11-18 22:56] LABS: BENZODIAZEPINES SCREEN URINE POSITIVE (NEGATIVE)
[2017-11-18 22:57] LABS: AMPHETAMINE SCREEN, URINE NEGATIVE (NEGATIVE); BARBITURATE SCREEN URINE NEGATIVE (NEGATIVE); CANNABINOID SCREEN, URINE NEGATIVE (NEGATIVE); COCAINE SCREEN URINE NEGATIVE (NEGATIVE); METHADONE STAT NEGATIVE (NEGATIVE); METHAMPHETAMINE SCREEN URINE S NEGATIVE (NEGATIVE); OPIATE SCREEN URINE NEGATIVE (NEGATIVE); OXYCODONE STAT NEGATIVE (NEGATIVE); PROPOXYPHENE STAT NEGATIVE (NEGATIVE); TRICYCLIC ANTIDEPRESSANTS SCRE NEGATIVE (NEGATIVE)
[2017-11-19] VITALS (7 sets, daily range): BP systolic 84–107; BP diastolic 42–70
[2017-11-19] MEDS: PIPERACILLIN/TAZOBACTAM 4.5 GM/NS 100 ML IVPB IV SCH ×6 (00:10→16:17)
[2017-11-19] MEDS ORDERED: RT-ALBUTEROL/IPRATROPIUM 3 ML (DUONEB) VIAL INH PRN (02:00)
[2017-11-19] MEDS: NS IV 1000 ML 1,000 ML IV SCH ×2 (03:29→11:28)
[2017-11-19] MEDS: RT-ALBUTEROL/IPRATROPIUM 3 ML (DUONEB) VIAL INH SCH ×4 (06:37→19:05)
[2017-11-19] MEDS ORDERED: FENT-64 TD (08:58)
--- NOTE | 2017-11-19 09:18 | History & Physicial ([facility]S) ---
HPI History of Present Illness: 62 yo gentleman presented to hospital with increasing shortness of breath and weakness. Patient has a history of head and neck cancer and has required a PEG tube due to chronic malnutrition. He has been losing weight and becoming increasingly weak over the past few months. Today, the patient appeared very sedated while I was in the exam room. He was able to wake up and talk to me. He did tell me that he does not want to be intubated under any circumstances. His called to talk to me at the clinic and tells me that he is "tired of fighting" and that he is often heard praying that God would just take him away because he is "sick and tired of being sick and tired." Source: patient, family Exam Limitations: no limitations Date seen by provider: Nov 19, 2017 Time Seen by Provider: 10:00 Attending Physician Shady Bahena MD PCP [facility] Consult Date of Admission Nov 18, 2017 at 18:23 Home Medications Home Medications Reviewed patient Home Medication Reconciliation Form Allergies Coded Allergies: propoxyphene (Verified Allergy, Unknown, 02/10/07) MVZ-[id number]-Hebmth Hx Patient Social History Alcohol Use: Denies Use Recreational Drug Use: No Smoking Status: Current Everyday Smoker Former smoker/When Quit: Nov 23, 2013 Type Used: Cigarettes 2nd Hand Smoke Exposure: Yes Recent Foreign Travel: No Contact w/other who traveled: No Recent Hopitalizations: No Recent Infectious Disease Expo: No Physical Abuse Screen: No Sexual Abuse: No Immunizations Up To Date Tetanus Booster (TDap): Less than 5yrs Date of Pneumonia Vaccine: Nov 23, 2015 Date of Influenza Vaccine: Aug 06, 2017 Past Medical History 1. Squamous Cell Carcinoma of Tonsils, s/p surgery, chemotherapy and radiation in 2011, now in remission per patient 2. COPD 3. Heavy Tobacco Abuse 4. Chronic Pain 5. Chronic Opiate Use for Pain Control 6. Insomnia 7. Depression 8. Anxiety 9. Protein Calorie Malnutrition 10. 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 Cachexia, BMI 19 12. Hx of Seizures -- reportedly rom medication withdrawal 13. Bradycardia secondary to atrial node dysfunction; pt reports he can't have a pacemaker until he gains more weight and is healthier 14. Protein Calorie Malnutrition 15. Hepatitis C -- no evidence of treatment in review of records Surgical History: Cholecystecotomy Tonsilecomy Neck Surgery x2 Back Surgery x2 Right Knee Arthroscopy x6 Right Total Knee Replacement tonsillectomy, chronic bronchitis, diabetes Family Medical History Family History: Cardiovascular disease 19 FATHER 19 MOTHER G8 BROTHER Diabetes mellitus 19 FATHER 19 MOTHER FH: cancer 19 FATHER 19 MOTHER Hypertension 19 FATHER 19 MOTHER Myocardial infarction 19 FATHER (patient stated dad has had 2 heart attacks) G8 BROTHER Respiratory disorder G8 SISTER (COPD) Review of Systems ([facility]) Constitutional: no symptoms reported All Other Systems Reviewed Negative Unless Noted: Yes Reviewed Test Results Reviewed Test Results Lab Laboratory Tests Test 11/18/17 16:24 11/18/17 16:43 11/18/17 17:30 11/18/17 22:30 Range/Units White Blood Count 15.2 H 4.3-11.0 10^3/uL Red Blood Count 3.50 L 4.35-5.85 10^6/uL Hemoglobin 11.2 L 13.3-17.7 G/DL Hematocrit 33 L 40-54 % Mean Corpuscular Volume 94 80-99 FL Mean Corpuscular Hemoglobin 32 25-34 PG Mean Corpuscular Hemoglobin Concent 34 32-36 G/DL Red Cell Distribution Width 12.5 10.0-14.5 % Platelet Count 204 130-400 10^3/uL Mean Platelet Volume 10.6 H 7.4-10.4 FL Neutrophils (%) (Auto) 90 H 42-75 % Lymphocytes (%) (Auto) 6 L 12-44 % Monocytes (%) (Auto) 5 0-12 % Eosinophils (%) (Auto) 0 0-10 % Basophils (%) (Auto) 0 0-10 % Neutrophils # (Auto) 13.6 H 1.8-7.8 X 10^3 Lymphocytes # (Auto) 0.8 L 1.0-4.0 X 10^3 Monocytes # (Auto) 0.7 0.0-1.0 X 10^3 Eosinophils # (Auto) 0.0 0.0-0.3 10^3/uL Basophils # (Auto) 0.0 0.0-0.1 10^3/uL Neutrophils % (Manual) 80 % Lymphocytes % (Manual) 4 % Monocytes % (Manual) 2 % Eosinophils % (Manual) 0 % Basophils % (Manual) 0 % Band Neutrophils 14 % Blood Morphology Comment NORMAL Sodium Level 142 135-145 MMOL/L Potassium Level 3.9 3.6-5.0 MMOL/L Chloride Level 110 H 98-107 MMOL/L Carbon Dioxide Level 23 21-32 MMOL/L Anion Gap 9 5-14 MMOL/L Blood Urea Nitrogen 22 H 7-18 MG/DL Creatinine 0.67 0.60-1.30 MG/DL Estimat Glomerular Filtration Rate > 60 BUN/Creatinine Ratio 33 Glucose Level 141 H 70-105 MG/DL Lactic Acid Level 1.37 0.50-2.00 MMOL/L Calcium Level 8.2 L 8.5-10.1 MG/DL Total Bilirubin 0.8 0.1-1.0 MG/DL Aspartate Amino Transf (AST/SGOT) 34 5-34 U/L Alanine Aminotransferase (ALT/SGPT) 30 0-55 U/L Alkaline Phosphatase 63 40-136 U/L Ammonia 19 11-32 UMOL/L Troponin I < 0.30 <0.30 NG/ML B-Type Natriuretic Peptide 39.0 <100.0 PG/ML Total Protein 5.9 L 6.4-8.2 GM/DL Albumin 2.7 L 3.2-4.5 GM/DL Blood Gas Puncture Site LT RAD L RAD Blood Gas Patient Temperature 101.1 97.6 Arterial Blood pH 7.41 7.45 H 7.37-7.43 Arterial Blood Partial Pressure CO2 38 32 L 35-45 MMHG Arterial Blood Partial Pressure O2 37 *L 61 L 79-93 MMHG Arterial Blood HCO3 23 22 L 23-27 MMOL/L Arterial Blood Total CO2 24.0 23.1 21.0-31.0 MMOL/L Arterial Blood Oxygen Saturation 59 L 93 L 94-100 % Arterial Blood Base Excess -0.9 -1.4 -2.5-2.5 MMOL/L Nando Test YES-POS YES-POS Blood Gas Ventilator Setting NO NO Blood Gas Inspired Oxygen 2L [address] H Urine Clarity CLEAR Urine pH 5 5-9 Urine Specific [place] 1.020 1.016-1.022 Urine Protein 2+ H NEGATIVE Urine Glucose (UA) NEGATIVE NEGATIVE Urine Ketones NEGATIVE NEGATIVE Urine Nitrite NEGATIVE NEGATIVE Urine Bilirubin NEGATIVE NEGATIVE Urine Urobilinogen 4 H NORMAL MG/DL Urine Leukocyte Esterase 1+ H NEGATIVE Urine RBC (Auto) NEGATIVE NEGATIVE Urine RBC NONE /HPF Urine WBC 2-5 /HPF Urine Squamous Epithelial Cells RARE /HPF Urine Crystals NONE /LPF Urine Bacteria NONE /HPF Urine Casts NONE /LPF Urine Mucus NEGATIVE /LPF Urine Culture Indicated NO Urine Opiates Screen NEGATIVE NEGATIVE Urine Oxycodone Screen NEGATIVE NEGATIVE Urine Methadone Screen NEGATIVE NEGATIVE Urine Propoxyphene Screen NEGATIVE NEGATIVE Urine Barbiturates Screen NEGATIVE NEGATIVE Ur Tricyclic Antidepressants Screen NEGATIVE NEGATIVE Urine Phencyclidine Screen NEGATIVE NEGATIVE Urine Amphetamines Screen NEGATIVE NEGATIVE Urine Methamphetamines Screen NEGATIVE NEGATIVE Urine Benzodiazepines Screen POSITIVE H NEGATIVE Urine Cocaine Screen NEGATIVE NEGATIVE Urine Cannabinoids Screen NEGATIVE NEGATIVE Radiology Date of Exam:11/18/17 CHEST 1 VIEW, AP/PA ONLY INDICATION: Cough, fever and dyspnea. Portable AP upright view of the chest is obtained with comparison made to study of 09/16/2017. FINDINGS: There has been development of extensive airspace disease in the lower lobe of the right lung with lesser involvement of the left lung base. No pneumothorax is identified. There is no other evidence of significant change. IMPRESSION: 1. Findings are compatible with right lower lobe pneumonia with patchy pneumonitis or early pneumonia in the left lung base. Clinical correlation is recommended. Radiographic followup would be of use to document resolution. Physical Exam-([facility]) Physical Exam Vital Signs VS - Last 72 Hours, by Label 11/18/17 11/18/17 11/18/17 11/18/17 16:21 18:21 18:58 20:51 Temp 101.0 101.0 98.7 Pulse 86 84 69 59 Resp 18 18 24 B/P (MAP) 106/66 (79) 86/48 (61) Pulse Ox 91 93 95 O2 Delivery Nasal Cannula Nasal Cannula Nasal Cannula O2 Flow Rate 2.00 4.00 4.00 11/18/17 11/18/17 11/19/17 11/19/17 20:56 22:15 00:00 01:00 Temp 97.8 Pulse 86 65 58 Resp 15 B/P (MAP) 107/70 (82) Pulse Ox 95 98 O2 Delivery Nasal Cannula Nasal Cannula O2 Flow Rate 4.00 4.00 FiO2 28 11/19/17 11/19/17 11/19/17 11/19/17 04:00 06:38 06:59 08:00 Temp 98.0 98.7 Pulse 62 65 62 Resp 15 24 B/P (MAP) 86/51 (63) 91/54 (66) Pulse Ox 91 93 93 O2 Delivery Nasal Cannula Nasal Cannula Nasal Cannula O2 Flow Rate 4.00 4.00 4.00 12/28/17 12/28/17 12/28/17 12/28/17 08:00 10:32 12:00 13:12 Temp 97.5 Pulse 66 61 Resp 16 B/P (MAP) 106/61 (76) Pulse Ox 93 96 95 O2 Delivery Nasal Cannula Nasal Cannula Nasal Cannula O2 Flow Rate 4.00 4.00 4.00 11/19/17 13:47 Pulse Ox 94 O2 Delivery Nasal Cannula O2 Flow Rate 4.00 Capillary Refill : Less Than 3 Seconds General Appearance: no apparent distress, cachetic HEENT: PERRL/EOMI, normal ENT inspection, pharynx normal Neck: non-tender, full range of motion, supple, normal inspection Respiratory: chest non-tender, decreased breath sounds, accessory muscle use Cardiovascular: regular rate, rhythm, no edema, no gallop, no JVD, no murmur Gastrointestinal: normal bowel sounds, non tender, soft, no organomegaly, no pulsatile mass Extremities: normal range of motion, non-tender, normal inspection, no pedal edema, no calf tenderness, normal capillary refill Neurologic/Psychiatric: area forester II-XII nml as tested, no motor/sensory deficits, alert, normal mood/affect, oriented x 3 Skin: normal color, warm/dry Clinical Quality Measures DVT/VTE Risk/Contraindication: Risk Factor Score Per Nursin RFS Level Per Nursing on Admit: 4+=Very High Copy Copies To 1: JON PHILIP DO Assessment/Plan Assessment/Plan Admission Dx Acute on Chronic Respiratory Failure Atypical PNA h/o Squamous Cell Throat Ca Mediastinal Lymphadenopathy on CT Cachexia Chronic Pain Hepatitis C Tobacco Use Plan ADMISSION: After clarifying with his that Ray is likely interested in comfort/palliative care, we will plan to meet with Jg and his tomorrow at 9am. Until then, I will pursue definitive treatment with antibiotics, tube feeds, etc. I have obtained another CT which was recommended during his August hospitalization. We will plan to discuss his overall goals of care tomorrow. Continue nebs, abx for now. The patient's overall prognosis is very poor, and I agree that intubation will likely prolonged. Hospice care is certainly a reasonable decision at this point. I am somewhat concerned that the high dose of fentanyl he is on, combined with the valium, is contributing to his overall clinical picture and chronic respiratory failure. I have decreased the fentanyl dose from 150 to 137.5 while in hospital. SHADY BAHENA MD Nov 19, 2017 9:18 am
[2017-11-19] MEDS ORDERED: NS 100 ML (IVPB) BAG IV ONE (14:00)
[2017-11-19] MEDS ORDERED: IOHEXOL 350 MG/ML 150 ML (OMNIPAQUE 350) VIAL IV ONE (14:00)
[2017-11-19] MEDS ORDERED: CATHETER FLUSH 10 ML SYR IV PRN (14:00)
[2017-11-19] MEDS: APAP 325 MG/10.15 ML LIQ (TYLENOL) UDC PEG PRN (14:01)
--- NOTE | 2017-11-19 16:06 | Diagnostic Imaging Report ---
CLINICAL INDICATION: Patient with concern for cancer returning in throat. Patient has history of neck surgery. EXAM: CT scan of the neck soft tissue performed with 125 cc of Omnipaque 350 IV contrast. Sagittal and coronal reformatted images were created. COMPARISON: CT scan of the neck soft tissue with contrast dated 02/16/2015. CT cervical spine without contrast dated 02/04/2016. FINDINGS: Of note, the anterior aspect of the oral cavity, tongue, sublingual space, and mandible are not completely imaged on this exam and cannot be evaluated. There is no enhancing mass seen in the nasopharynx, oropharynx, hypopharynx, or laryngeal soft tissue regions. The soft tissue is relatively symmetric. The visualized portion of the tongue, sublingual space, and submandibular space show no evidence of mass. There is no lymphadenopathy. The thyroid gland is unremarkable. The bilateral salivary gland regions and submandibular gland regions are not well visualized and may be atrophic. There is atherosclerotic disease involving the bilateral carotid arteries with no major stenosis seen. There is interval development of a large amount of consolidation and fluid in the right mastoid air cells and right middle ear. The visualized upper lung farmer show no significant abnormality. Again seen extensive postop changes to the cervical spine with posterior fusion hardware beginning at the C1 vertebral body and extending down to the thoracic spine and is incompletely imaged. There is C2-C3 anterior cervical interbody fusion noted. There is cervical spine degenerative disease and facet arthropathy noted. There are laminectomies involving the C3 through C6 levels. IMPRESSION: 1: There is no evidence of developing neck soft tissue mass or lymphadenopathy on this limited exam, as described above. 2: There is interval development of a large amount of consolidation and fluid in the right mastoid air cells and right middle ear. There is no evidence of a right posterior nasopharyngeal mass. 3: Stable extensive postop changes to the spine. Dictated by: Dictated on workstation # [id number]
--- NOTE | 2017-11-19 17:01 | Diagnostic Imaging Report ---
PROCEDURE: CT angiography of the chest with contrast. TECHNIQUE: Multiple contiguous axial images were obtained through the chest after uneventful bolus administration of intravenous contrast. Reconstructed CTA MIP acquisitions were also performed. INDICATION: Right lower lobe consolidation. Concern for return of cancer. FINDINGS: There is significant consolidation in the right lower lobe and patchy consolidation in the left lower lobe likely related to pneumonia. An underlying mass or suspicious nodule could be obscured and follow-up till resolution with chest radiographs and CT scan if needed is recommended. There is no significant pleural effusion. No pericardial effusion. The heart size is normal. The thoracic aorta is normal in caliber. No mediastinal mass or significant lymphadenopathy. There are mildly enlarged lymph nodes in the right hilum measuring 1.3 cm and infracarinal region measuring 1 cm. These are perhaps related to the pneumonia in the lung bases. There is no lymphadenopathy in the axilla. The thoracic aorta is normal. There are no filling defects in the pulmonary arteries to suggest pulmonary embolism. The osseous structures demonstrate posterior fusion hardware in the upper thoracic spine extending from the cervical spine. The mid and lower thoracic spine demonstrates prominent degenerative changes. There is a gastrostomy tube seen in place. There is fluid distention in the stomach also seen. Multiple calcifications in the pancreas are also noted with slight dilatation of the pancreatic duct. This is probably sequela of chronic pancreatitis. Correlate clinically. IMPRESSION: Bilateral lower lobe consolidation larger on the right side favored to be related to pneumonia. Follow-up with the PA and lateral radiographs in six weeks is recommended to ensure complete resolution. Dictated by: Dictated on workstation # [id number]
[2017-11-20] VITALS: BP 109/67
[2017-11-20] MEDS: NS IV 1000 ML 1,000 ML IV SCH ×4 (00:19→10:56)
[2017-11-20] MEDS: PIPERACILLIN/TAZOBACTAM 4.5 GM/NS 100 ML IVPB IV SCH ×4 (00:19→08:11)
[2017-11-20] MEDS: APAP 325 MG/10.15 ML LIQ (TYLENOL) UDC PEG PRN (03:12)
[2017-11-20 03:57] VITALS: BP 87/50
[2017-11-20 06:51] LABS: HEMOGLOBIN 9.7 G/DL (13.3-17.7); MEAN PLATELET VOLUME 10.6 FL (7.4-10.4); RED BLOOD COUNT 3.09 10^6/uL (4.35-5.85); RED CELL DISTRIBUTION WIDTH 12.6 % (10.0-14.5); WHITE BLOOD COUNT 6.8 10^3/uL (4.3-11.0)
[2017-11-20 07:07] LABS: BUN/CREATININE RATIO 25; CALCIUM 8.1 MG/DL (8.5-10.1); CARBON DIOXIDE 21 MMOL/L (21-32); CHLORIDE 114 MMOL/L (98-107); CREATININE SERUM 0.57 MG/DL (0.60-1.30); GFR ESTIMATED > 60; GLUCOSE 117 MG/DL (70-105); POTASSIUM 3.9 MMOL/L (3.6-5.0); SODIUM 142 MMOL/L (135-145)
[2017-11-20 07:13] VITALS: BP 96/61
[2017-11-20] MEDS: RT-ALBUTEROL/IPRATROPIUM 3 ML (DUONEB) VIAL INH SCH ×2 (07:16→12:41)
--- NOTE | 2017-11-20 11:15 | Discharge Summary ---
Diagnosis/Chief Complaint Date of Admission Nov 18, 2017 at 6:23 pm Date of Discharge Chief Complaint/HPI Chief Complaint/HPI 62 yo gentleman presented to hospital with increasing shortness of breath and weakness. Patient has a history of head and neck cancer and has required a PEG tube due to chronic malnutrition. He has been losing weight and becoming increasingly weak over the past few months. Today, the patient appeared very sedated while I was in the exam room. He was able to wake up and talk to me. He did tell me that he does not want to be intubated under any circumstances. His called to talk to me at the clinic and tells me that he is "tired of fighting" and that he is often heard praying that God would just take him away because he is "sick and tired of being sick and tired. Discharge Summary-Simple/Stand Consultations Discharge Physical Examination Allergies: Coded Allergies: propoxyphene (Verified Allergy, Unknown, 02/10/07) Vitals & I&Os Vital Sign - Last 12Hours Date Time Temp Pulse Resp B/P (MAP) Pulse Ox O2 Delivery O2 Flow Rate FiO2 11/20/17 08:00 Nasal Cannula 4.00 11/20/17 07:16 96 11/20/17 07:13 97.8 55 20 96/61 (73) 11/18/17 22:15 28 Intake and Output 11/19/17 23:59 Intake Total 711 ml Output Total 1100 ml Balance -389 ml Hospital Course See final discharge diagnosis. Radiology Reviewed Date of Exam:11/18/17 CHEST 1 VIEW, AP/PA ONLY INDICATION: Cough, fever and dyspnea. Portable AP upright view of the chest is obtained with comparison made to study of 09/16/2017. FINDINGS: There has been development of extensive airspace disease in the lower lobe of the right lung with lesser involvement of the left lung base. No pneumothorax is identified. There is no other evidence of significant change. IMPRESSION: 1. Findings are compatible with right lower lobe pneumonia with patchy pneumonitis or early pneumonia in the left lung base. Clinical correlation is recommended. Radiographic followup would be of use to document resolution. Discharge Instructions to patient/family Please see electronic discharge instructions given to patient. Discharge Medications Reviewed and agree with Discharge Medication list on patient's Discharge Instruction sheet Clinical Quality Measures DVT/VTE Risk/Contraindication: Risk Factor Score Per Nursin RFS Level Per Nursing on Admit: 4+=Very High SHADY BAHENA MD Nov 20, 2017 11:15 am
--- NOTE | 2017-11-20 11:21 | Discharge Instructions ---
Discharge [facility] Discharge Medications New, Converted or Re-Newed RX: Transmitted to Pharmacy Continued Medications: Albuterol Sulfate (Albuterol Sulfate) 2.5 Mg/3 Ml Vial.neb 2.5 MG NEB Q4H PRN for SHORTNESS OF BREATH, EA Diazepam (Diazepam) 10 Mg Tablet 10 MG PO QID PRN for ANXIETY, TAB Docusate Sodium (Colace) 100 Mg Capsule 100 MG PO DAILY PRN for CONSTIPATION-1ST LINE, CAP Duloxetine HCl (Duloxetine HCl) 60 Mg Capsule.dr 60 MG PO DAILY, CAP Fentanyl (Fentanyl Patch 100 MCG) 1 Each Patch.td72 100 MCG TD Q72H, PATCH USES ALONG WITH 37.5 MCG PATCH Nutritional Supplement (Osmolite 1.5 Nikolas) 237 Ml Liquid 120 ML PO QID, EA Zolpidem Tartrate (Zolpidem Tartrate ER) 12.5 Mg Tab.mphase 12.5 MG PO HS PRN for SLEEP, TAB Discontinued Medications: Fentanyl (Fentanyl Patch 37.5 MCG) 1 Each Patch.td72 37.5 MCG TD Q72H, PATCH USES ALONG 100MCG PATCH Patient Instructions Goal/Follow Up Appt: FOLLOW UP WITH THE HOSPICE TEAM. IF YOU WANT TO SEE DR BAHENA, PLEASE CALL THE CLINIC AND ASK TO SPEAK WITH HER NURSE. SHE WILL ARRANGE AN APPOINTMENT FOR YOU. Patient Instructions: PLEASE FOLLOW ALL RECOMMENDATIONS FROM HOSPICE. Return to The Hospital For: PLEASE CALL THE HOSPICE NURSE PRIOR TO RETURNING TO HOSPITAL THERE IS A LOT THEY CAN DO FOR YOU THROUGH THEIR SERVICES. Activity & Diet Discharge Diet: No Restrictions Activity as Tolerated: Yes Copy Copies To 1: JON PHILIP JULIE A MD Nov 20, 2017 11:21 am
[2017-11-20 12:00] VITALS: BP 118/68
[2017-11-20 14:11] VITALS: BP 118/68
[2017-11-21] MEDS ORDERED: [UNRECOGNIZED DRUG - REMARK] TP SCH (19:15)
== END 2017-11-20 14:31 | disposition hospice, home (50) | DRG 189 ==
LOC: EDUNIT# 16:21 → ER 16:22 → 4TH 18:23
PROVIDERS: ADMIT Pediatrics; ATTEND Pediatrics
DX: J96.20 Acute and chronic respiratory failure, unspecified whether with hypoxia or hypercapnia (principal); J18.9 Pneumonia, unspecified organism; R04.2 Hemoptysis; Z85.818 Personal history of malignant neoplasm of other sites of lip, oral cavity, and pharynx; R64 Cachexia; Z68.1 Body mass index [BMI] 19.9 or less, adult; E46 Unspecified protein-calorie malnutrition; R13.10 Dysphagia, unspecified; J44.9 Chronic obstructive pulmonary disease, unspecified; F17.210 Nicotine dependence, cigarettes, uncomplicated; E11.40 Type 2 diabetes mellitus with diabetic neuropathy, unspecified; B19.20 Unspecified viral hepatitis C without hepatic coma; G40.909 Epilepsy, unspecified, not intractable, without status epilepticus; F41.9 Anxiety disorder, unspecified; F31.9 Bipolar disorder, unspecified; G47.00 Insomnia, unspecified; M54.9 Dorsalgia, unspecified; R00.1 Bradycardia, unspecified; Z92.21 Personal history of antineoplastic chemotherapy; Z92.3 Personal history of irradiation; Z93.1 Gastrostomy status; Z79.891 Long term (current) use of opiate analgesic; Z96.651 Presence of right artificial knee joint; G89.29 Other chronic pain
CPT/HCPCS: 36415; 70491; 71010; 71275; 80048; 80053; 80306; 81000; 82140; 82805; 83605; 83880; 84484; 85007; 85027; 87040; 87804; 93005; 94640; 94760; 96365